=== PATIENT | female | born 1945 | race Caucasian/White ===

== ENCOUNTER 2017-07-21 08:38 | Outpatient (CLI) | payer MEDICARE, OTHER ==
[2017-07-21 09:12] LABS: ALBUMIN/GLOBULIN RATIO 1.6 (1.0-2.2); BILIRUBIN,TOTAL 0.8 mg/dL (0.2-1.0); BUN - BLOOD UREA NITROGEN 14 mg/dL (6-20); CALCIUM 9.8 mg/dL (8.5-10.3); CARBON DIOXIDE - CO2 28 mmol/L (21-32); CHLORIDE 100 mmol/L (101-111); CHOL/HDL RATIO 2.5 (<4.4); CHOLESTEROL 213 mg/dL; CREATININE 0.5 mg/dL (0.4-1.0); GFR - MDRD 121 (>89); GLUCOSE 109 mg/dL (70-100); HDL CHOLESTEROL 86 mg/dL; LDL/HDL RATIO 1.3 (<4.4); POTASSIUM 3.8 mmol/L (3.5-5.0); SODIUM 140 mmol/L (135-145); TOTAL PROTEIN 7.2 g/dL (6.7-8.2); TRIGLYCERIDES 56 mg/dL; VLDL CHOLESTEROL 11 mg/dL
== END 2017-07-21 08:39 | disposition home or self-care (01) ==
LOC: LAB 08:38
PROVIDERS: ATTEND Physician Assistant
DX: I10 Essential (primary) hypertension (principal); E03.9 Hypothyroidism, unspecified; E78.5 Hyperlipidemia, unspecified
CPT/HCPCS: 36415; 80053; 80061; 84443

== ENCOUNTER 2018-05-18 07:55 | Outpatient (CLI) | payer MEDICARE, OTHER ==
[2018-05-18 09:24] LABS: CREATININE,URINE 66.4 mg/dL
[2018-05-18 09:30] LABS: MICROALBUMIN,URINE < 0.2 mg/dL (0-300.0)
[2018-05-18 09:47] LABS: ALBUMIN 4.4 g/dL (3.2-5.5); ALBUMIN/GLOBULIN RATIO 1.5 (1.0-2.2); ALKALINE PHOSPHATASE 66 IU/L (42-121); ALT ALANINE AMINOTRANSFERASE 24 IU/L (10-60); AST ASPARTATE AMINOTRANSFERASE 27 IU/L (10-42); BILIRUBIN,TOTAL 0.9 mg/dL (0.2-1.0); BUN - BLOOD UREA NITROGEN 9 mg/dL (6-20); CALCIUM 9.5 mg/dL (8.5-10.3); CARBON DIOXIDE - CO2 28 mmol/L (21-32); CHLORIDE 99 mmol/L (101-111); CHOL/HDL RATIO 2.2 (<4.4); CHOLESTEROL 209 mg/dL; CREATININE 0.5 mg/dL (0.4-1.0); GFR - MDRD 120 (>89); GLUCOSE 108 mg/dL (70-100); HDL CHOLESTEROL 93 mg/dL; LDL CHOLESTEROL,CALCULATED 105 mg/dL; LDL/HDL RATIO 1.1 (<4.4); SODIUM 137 mmol/L (135-145); TOTAL PROTEIN 7.4 g/dL (6.7-8.2); VLDL CHOLESTEROL 11 mg/dL
== END 2018-05-18 07:56 | disposition home or self-care (01) ==
LOC: LAB 07:55
PROVIDERS: ATTEND Physician Assistant
DX: E78.5 Hyperlipidemia, unspecified (principal); I10 Essential (primary) hypertension; E03.9 Hypothyroidism, unspecified
CPT/HCPCS: 36415; 80053; 80061; 82043; 82570; 83721; 84156; 84443

== ENCOUNTER 2018-05-18 08:14 | Outpatient (CLI) | payer MEDICARE, OTHER ==
--- NOTE | 2018-05-18 16:47 | Mammography Report ---
Reason: BILANNMARIE DIAG w PIERRE/ RT LUMP UOQ Procedure Date: 05/18/2018 Accession Number: [id number] / [id number] Procedure: CORNELL - Diagnostic Bilat 3D Pierre CPT Code: 43433 FULL RESULT: EXAM: Diagnostic Bilat 3D Pierre DATE: 05/18/2018 9:22 AM CLINICAL HISTORY: 73-year-old female presents with palpable nodule. TECHNIQUE: Bilateral 2-D and 3-D imaging of the breasts in CC and MLO projections was obtained. A 2-D right exaggerated CC view was also obtained. A right spot MLO view was also obtained. COMPARISON: 02/16/2015, 09/29/2013. FINDINGS: The breasts demonstrate scattered fibroglandular densities bilaterally. Within the right chest wall projecting within the pectoralis muscle is a hyperdense mass with irregular border measuring at least 6.9 x 3.2 cm seen on the MLO projection only. Focused breast ultrasound with grayscale and limited color Doppler images was also obtained. This demonstrated the mass to be hypoechoic with irregular borders and within the chest wall musculature. IMPRESSION: Suspicious abnormality. The patient has a appointment for ultrasound-guided biopsy at 12:15 on 05/28/2018. RECOMMENDATION: Ultrasound-guided biopsy. BIRADS CATEGORY 5 STANDARD QUALIFYING STATEMENTS: 1. This examination was not reviewed with the aid of Computer-Aided Detection (CAD). 2. A negative or benign imaging report should not delay biopsy if clinically suspicious findings are present. Consider surgical consultation if warrented. More than 5% of cancers are not identified by imaging. 3. Dense breasts may obscure an underlying neoplasm. 4. This examination was reviewed with the aid of 3D imaging (tomography).
== END 2018-05-18 08:15 | disposition home or self-care (01) ==
LOC: DI 08:14
PROVIDERS: ATTEND Physician Assistant
DX: N63.10 Unspecified lump in the right breast, unspecified quadrant (principal); R22.2 Localized swelling, mass and lump, trunk; E78.5 Hyperlipidemia, unspecified; E03.9 Hypothyroidism, unspecified; I10 Essential (primary) hypertension
CPT/HCPCS: 36415; 71046; 76642; 77062; 80053; 80061; 82043; 82570; 84443

== ENCOUNTER 2018-05-18 11:22 | Outpatient (CLI) | payer MEDICARE, OTHER ==
--- NOTE | 2018-05-18 16:18 | XRAY Report ---
Reason: MASS ABOVE R BREAST CHEST WALL Procedure Date: 05/18/2018 Accession Number: [id number] / [id number] Procedure: XR - Chest 2 View X-Ray CPT Code: 13441 FULL RESULT: EXAM: CHEST RADIOGRAPHY EXAM DATE: 05/18/2018 11:34 AM. CLINICAL HISTORY: Mass above right breast chest wall. COMPARISON: US breast unilateral limited 05/18/2018 10:27 AM. TECHNIQUE: 2 views. FINDINGS: Lungs/Pleura: No focal opacities evident. No pleural effusion. No pneumothorax. Normal volumes. Mediastinum: Heart and mediastinal contours are unremarkable. Other: The known mass is not well seen on chest radiograph. IMPRESSION: No acute cardiopulmonary abnormality. RADIA
== END 2018-05-18 11:23 | disposition home or self-care (01) ==
LOC: DI 11:22
PROVIDERS: ATTEND Physician Assistant
DX: R22.2 Localized swelling, mass and lump, trunk (principal); N63.10 Unspecified lump in the right breast, unspecified quadrant
CPT/HCPCS: 71046

== ENCOUNTER 2018-05-28 12:12 | Outpatient (CLI) | payer MEDICARE, OTHER ==
[2018-05-28] MEDS ORDERED: BUFFERED LIDOCAINE 10 ML SYRINGE IU ONE (14:53)
[2018-05-28] MEDS ORDERED: BUPIVACAINE 0.5%-EPI 1:200000 PF 10 ML VIAL SUBQ ONE ×2 (14:54)
--- NOTE | 2018-05-28 16:18 | Ultrasound Report ---
Reason: ABN MAMMO - RT CHEST WALL NODULE Procedure Date: 05/28/2018 Accession Number: [id number] / [id number] Procedure: US - Biopsy Breast Core CPT Code: FULL RESULT: PROCEDURE: Ultrasound-guided needle biopsy right chest wall mass superior to right breast. CLINICAL DATA: Targeted mass superior right chest wall at least 5 x 5 x 2.5 cm. Informed consent was obtained. Using standard aseptic technique, both 1% buffered lidocaine and Sensorcaine were injected into the right chest for local anesthesia. A small kathryn was made in the skin with a #11 blade. Using ultrasound guidance a 14-gauge achieve needle was used to obtain 5 core specimens which were placed in formalin. A specialized biopsy marker clip was placed into the biopsy site, also under ultrasound guidance. The patient was taken to separate mammography machine and a two-view digital mammography was performed to verify the clip placement and any complications. The mammography showed appropriate clip placement.. A postprocedure PA chest x-ray was also performed and no pneumothorax is seen. The wound was dressed. The patient was observed for approximately 15 minutes, then was discharged from diagnostic imaging Department in good condition following instructions on wound care and obtaining biopsy results. The patient is scheduled to receive the biopsy results from the referring physician. The tissue was sent for histologic analysis. IMPRESSION: Ultrasound-guided biopsy of the right chest. AN ADDENDUM WILL REMAIN TO THIS REPORT WHEN PATHOLOGY IS REVIEWED TO ESTABLISH CONCORDANCE.
--- NOTE | 2018-05-28 16:20 | XRAY Report ---
Reason: F/U TO BREAST BIOPSY PER RADIOLOGISTS REQUEST Procedure Date: 05/28/2018 Accession Number: [id number] / [id number] Procedure: XR - Chest 1 View X-Ray CPT Code: 70855 FULL RESULT: EXAM: Chest 1 View X-Ray DATE: 05/28/2018 2:46 PM CLINICAL HISTORY: F/U TO RIGHT CHEST WALL BIOPSY PER RADIOLOGISTS REQUEST COMPARISON: 05/18/2018 TECHNIQUE: Single view of the chest. FINDINGS: Lungs/Pleura: No focal opacities evident. No pneumothorax or pleural effusion. Mediastinum: Within exam limitations, cardiomediastinal contour is normal. Other: None. IMPRESSION: Negative single view chest. No unexpected findings status post right chest wall mass biopsy. RADIA
== END 2018-05-28 12:13 | disposition home or self-care (01) ==
LOC: DI 12:12
PROVIDERS: ATTEND Physician Assistant
DX: C50.911 Malignant neoplasm of unspecified site of right female breast (principal)
CPT/HCPCS: 19083

== ENCOUNTER 2019-03-15 21:25 | Inpatient (IN) | payer MEDICARE, OTHER ==
[2019-03-15 22:06] LABS: BASOPHILS % (AUTO) 0.2 %; EOSINOPHILS # (AUTO) 0.1 10^3/uL (0.0-0.7); EOSINOPHILS % (AUTO) 2.5 %; HGB - HEMOGLOBIN 14.5 g/dL (12.0-16.0); LYMPHOCYTES # (AUTO) 0.4 10^3/uL (1.5-3.5); LYMPHOCYTES % (AUTO) 7.6 %; MEAN CORPUSCULAR HEMOGLOBIN 32.6 pg (27.0-31.0); MEAN CORPUSCULAR HGB CONC 33.5 g/dL (32.0-36.0); MEAN CORPUSCULAR VOLUME 97.3 fL (81.0-99.0); MEAN PLATELET VOLUME 9.3 fL (7.9-10.8); MONOCYTES # (AUTO) 0.3 10^3/uL (0.0-1.0); MONOCYTES % (AUTO) 4.8 %; NEUTROPHILS # (AUTO) 4.8 10^3/uL (1.5-6.6); NEUTROPHILS % (AUTO) 84.5 %; PLT - PLATELET COUNT 200 10^3/uL (130-450); RED BLOOD COUNT 4.45 10^6/uL (4.20-5.40); RED CELL DISTRIBUTION WIDTH 12.3 % (12.0-15.0); WHITE BLOOD COUNT 5.7 x10^3/uL (4.8-10.8)
[2019-03-15 22:19] LABS: ALBUMIN 3.7 g/dL (3.2-5.5); ALBUMIN/GLOBULIN RATIO 1.2 (1.0-2.2); BILIRUBIN,TOTAL 1.3 mg/dL (0.2-1.0); CALCIUM 9.9 mg/dL (8.5-10.3); CREATININE 0.5 mg/dL (0.4-1.0); TOTAL PROTEIN 6.8 g/dL (6.7-8.2)
--- NOTE | 2019-03-15 23:12 | ED Physician Documentation ---
PD HPI NVD - Stated complaint Stated Complaint: ABD PX/VOMITING - Chief complaint Chief Complaint: Abd Pain - History obtained from History obtained from: Patient - History of Present Illness Timing - onset: Today (this afternoon, shortly after small lunch, onset of feeling bloated, gassy, and cramping diffuse abd pain. No stool today. Had some flatulance initially but not the past several hours. Has vomiting and nausea.) Timing - duration: Hours Timing - details: Abrupt onset, Still present Associated symptoms: Chest pain (She has had some mild persistent right chest pain status post thoracostomy 4 days ago at for wedge resection biopsy of a right lung nodule. She has had improving pain and has not needed pain medicine for couple of days. She has bruising at the incision sites but no signs of infection.). No: Fever, Hematemesis, Dizzy, Near syncope / syncope Contributing factors: No: Bad food, Travel, Recent antibiotics Improved by: No: Vomiting Worsened by: Eating Similar symptoms before: Has not had sx before Recently seen: Surgery (4 days ago at [facility], with wedge resection biopsy via thoracostomy.) Review of Systems Constitutional: denies: Fever, Chills, Myalgias Nose: denies: Rhinorrhea / runny nose, Congestion Throat: denies: Sore throat Cardiac: reports: Chest pain / pressure. denies: Palpitations Respiratory: denies: Cough GI: reports: Abdominal Pain, Nausea, Vomiting. denies: Constipation, Diarrhea, Bloody / black stool : denies: Dysuria, Frequency Neurologic: reports: Generalized weakness. 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 HEENT: Tonsil/Adenoidectomy - Present Medications Home Medications: Ambulatory Orders Medication Instructions Recorded Confirmed Levothyroxine [Synthroid] 175 mcg PO DAILY 08/23/15 08/23/15 Simvastatin 20 mg PO DAILY 08/23/15 08/23/15 - Allergies Allergies/Adverse Reactions: Allergies Allergy/AdvReac Type Severity Reaction Status Date / Time No Known Drug Allergies Allergy Verified 03/15/19 21:41 - Social History Does the pt smoke?: No Smoking Status: Never smoker Does the pt drink ETOH?: Yes Does the pt have substance abuse?: No - Immunizations Immunizations are current?: Yes - POLST Patient has POLST: No PD ED PE NORMAL - Vitals Vital signs reviewed: Yes - General General: Alert and oriented X 3, Well developed/nourished, Other (appears in some pain) - HEENT HEENT: Pharynx benign - Neck Neck: Supple, no meningeal sign, No adenopathy - Cardiac Cardiac: RRR, No murmur - Respiratory Respiratory: Other (port palpable left chest wall. ). No: Clear bilaterally (mostly symmetric with slightly diminished breath sounds right side. No labored breathing. There is closed wounds right posterolateral chest with bruising and some palpable subcutaenous air, but no signs of infection. ) - Abdomen Abdomen: No: Normal bowel sounds (increased bowel sounds, hyperactive. There is diffuse tenderness to abd, but more to the lower abd. Mild distension only. Mild percussion tenderness. There is a palpable periumbilical hernia which is soft and reducible. No inguinal hernia felt. ) - Female Female : Deferred - Rectal Rectal: Deferred - Back Back: No CVA TTP - Derm Derm: Normal color, Warm and dry - Extremities Extremities: No tenderness to palpate, Normal ROM s pain, No edema, No calf tenderness / cord - Neuro Neuro: Alert and oriented X 3, No motor deficit, Normal speech Results - Vitals Vitals: Vital Signs - 24 hr 03/15/19 03/15/19 03/16/19 21:37 22:56 00:24 Temperature 36.6 C Heart Rate 86 80 80 Respiratory 16 18 18 Rate Blood Pressure 146/76 H 147/86 H 148/69 H O2 Saturation 96 90 L 96 03/16/19 02:07 Temperature Heart Rate 82 Respiratory 16 Rate Blood Pressure 128/60 O2 Saturation 95 Oxygen O2 Source Nasal cannula Oxygen Flow Rate 2 - Labs Labs: Laboratory Tests 03/15/19 03/15/19 03/16/19 21:59 21:59 00:11 WBC 5.7 RBC 4.45 Hgb 14.5 Hct 43.3 MCV 97.3 MCH 32.6 H MCHC 33.5 RDW 12.3 Plt Count 200 MPV 9.3 Neut # (Auto) 4.8 Lymph # (Auto) 0.4 L [place] # (Auto) 0.3 Eos # (Auto) 0.1 Baso # (Auto) 0.0 Absolute Nucleated RBC 0.00 Nucleated RBC % 0.0 Sodium 139 Potassium 3.7 Chloride 98 L Carbon Dioxide 26 Anion Gap 15.0 H BUN 10 Creatinine 0.5 Estimated GFR (MDRD) 120 Glucose 137 H Calcium 9.9 Total Bilirubin 1.3 H AST 27 ALT 26 Alkaline Phosphatase 55 Total Protein 6.8 Albumin 3.7 Globulin 3.1 Albumin/Globulin Ratio 1.2 Lipase 21 L Urine Color YELLOW Urine Clarity CLEAR Urine pH 7.0 Ur Specific [place] 1.015 Urine Protein NEGATIVE Urine Glucose (UA) NEGATIVE Urine Ketones >=80 H Urine Occult Blood NEGATIVE Urine Nitrite NEGATIVE Urine Bilirubin NEGATIVE Urine Urobilinogen 0.2 (NORMAL) Ur Leukocyte Esterase NEGATIVE Ur Microscopic Review NOT INDICATED Urine Culture Comments NOT INDICATED - Rads (name of study) abd/pelvis/chest CT Radiology: Prelim report reviewed, Discussed with rads (Patient has post procedure pneumothorax and subcutaneous emphysema with some inflammatory changes. No signs of abscess or loculations. There is in the abdomen dilated loops of bowel consistent with a bowel obstruction with apparent source being some adhesions and inflammation underneath the mesh from a prior surgery. There is also visible a periumbilical hernia that does not look incarcerated.), See rad report PD MEDICAL DECISION MAKING - ED course Complexity details: reviewed results, re-evaluated patient (Patient's initial preference was to stick with the [facility] system. I did talk with the transfer center who said they were boarding patients at all their facilities and were deferring accepting any transfers unless complicated problems. They suggested talking with our local surgeon for this.), considered differential, d/w patient, d/w sap plant maintenance consultant (Dr. Chito Fritz - discussed her findings and recent procedure - he refers to Medicine and will consult. ) Departure - Departure Disposition: 66 [facility] DC/Xfer Clinical Impression: Small bowel obstruction due to adhesions, Pneumothorax of right lung after biopsy Condition: Stable Record reviewed to determine appropriate education?: Yes
[2019-03-15] MEDS ORDERED: HYDROmorphone 1 MG/ML CARPUJECT IVP STA (23:22)
[2019-03-15] MEDS ORDERED: ONDANSETRON 4 MG/2 ML VIAL IVP STA (23:22)
[2019-03-15] MEDS ORDERED: SODIUM CHLORIDE 0.9% 1,000 ML IV ONE (23:22)
[2019-03-16] MEDS ORDERED: IOVERSOL 320 100 ML VIAL IVP ONE ×2 (00:03→00:44)
[2019-03-16 00:33] LABS: BILIRUBIN,URINE NEGATIVE (NEGATIVE); GLUCOSE, URINE (UA) NEGATIVE (NEGATIVE); KETONES,URINE (UA) >=80 mg/dL (NEGATIVE); LEUKOCYTE ESTERASE, URINE NEGATIVE (NEGATIVE); NITRITE,URINE NEGATIVE (NEGATIVE); OCCULT BLOOD,URINE NEGATIVE (NEGATIVE); PROTEIN,URINE NEGATIVE (NEGATIVE); UROBILINOGEN,URINE 0.2 (NORMAL) E.U./dL (NORMAL)
[2019-03-16 00:35] LABS: CLARITY,URINE CLEAR (CLEAR)
[2019-03-16] MEDS ORDERED: HYDROmorphone 1 MG/ML CARPUJECT IVP STA ×2 (00:47→02:17)
--- NOTE | 2019-03-16 01:07 | CT Report ---
Reason: post wedge resection Thursday; abd pain and vomiting Procedure Date: 03/16/2019 Accession Number: [id number] / [id number] Procedure: CT - CHEST W CPT Code: FULL RESULT: EXAM: CT CHEST EXAM DATE: 03/16/2019 12:41 AM. CLINICAL HISTORY: Post wedge resection Thursday; abd pain and vomiting. COMPARISONS: ABDOMEN/PELVIS W/ 03/16/2019 12:32 AM. TECHNIQUE: Routine helical CT imaging was performed through the chest. IV contrast: 100 mL Optiray 320. Reconstructions: Coronal and sagittal. In accordance with CT protocol optimization, one or more of the following dose reduction techniques were utilized for this exam: automated exposure control, adjustment of mA and/or KV based on patient size, or use of iterative reconstructive technique. FINDINGS: Lungs/Pleura: Postoperative changes in the right middle lobe. Right greater than left basilar atelectasis. Small right pneumothorax. Extensive subcutaneous emphysema in the right chest wall. Mediastinum: Atherosclerotic calcifications. No adenopathy or cardiomegaly. Bones: Degenerative changes. Visualized Abdomen: Please see separate CT. Other: None. IMPRESSION: Postoperative changes in the right middle lobe, with small right pneumothorax and right chest wall subcutaneous emphysema. RADIA The critical result notification system was initiated by Dr. David Gregory at 12:58 AM on 03/16/2019. The above critical result findings were discussed with Zac Sorensen by Dr. David Gregory at 01:06 AM on 03/16/2019.
--- NOTE | 2019-03-16 01:07 | CT Report ---
Reason: abd pain and vomiting Procedure Date: 03/16/2019 Accession Number: [id number] / [id number] Procedure: CT - Abdomen/Pelvis W CPT Code: FULL RESULT: EXAM: CT ABDOMEN AND PELVIS EXAM DATE: 03/16/2019 12:41 AM. CLINICAL HISTORY: Abd pain and vomiting. COMPARISONS: None. TECHNIQUE: Routine helical CT imaging was performed through the abdomen and pelvis. IV contrast: 100 mL Optiray 320. Enteric contrast: No. Reconstructions: Coronal and sagittal. In accordance with CT protocol optimization, one or more of the following dose reduction techniques were utilized for this exam: automated exposure control, adjustment of mA and/or KV based on patient size, or use of iterative reconstructive technique. FINDINGS: Lung Bases: Postoperative changes in the right middle lobe, with small right pneumothorax and associated subcutaneous emphysema. Liver: Normal. No masses. Gallbladder/Bile Ducts: Unremarkable. Spleen: Normal. Pancreas: Normal. Adrenal Glands: Normal. Kidneys: Normal. No masses or hydronephrosis. Peritoneal Cavity/Bowel: Small bowel dilatation in the pelvis, with mesenteric edema and ascites. There is been a previous right inguinal hernia repair, and the dilated small bowel loops are closely associated with the hernia mesh. Superior to the hernia mesh, there are 2 anterior abdominal wall hernias, one below and to the left of the umbilicus containing fat, and 1 just to the right of the umbilicus containing a nondilated loop of small bowel. Pelvic Organs: Small amount of ascites in the pelvis. Postoperative changes of hysterectomy. No pelvic adenopathy. Vasculature: Atherosclerotic disease. No aneurysm. Bones: Degenerative changes. Other: None. IMPRESSION: Dilated small bowel loops in the pelvis, with mesenteric edema and ascites, closely associated with the mesh from a previous right inguinal hernia repair. Additional umbilical hernias, 1 of which contains a nondilated loop of small bowel. Findings called to Dr. Sorensen in the emergency department on 03/16/2019 at 1 AM. KODI
[2019-03-16] MEDS ORDERED: SODIUM CHLORIDE 0.9% 1,000 ML IV ONE (02:17)
--- NOTE | 2019-03-16 03:24 | HISTORY & PHYSICAL EXAMINATION ---
Chief Complaint - Chief Complaint Chief Complaint: Abdominal pain History of Present Illness - Admitted From Admitted From:: Home - History Obtained From Records Reviewed: Yes History obtained from: Patient, - History of Present Illness HPI Comment/Other: This is a 73 year old female with a past medical history significant for breast cancer, and hypothyroidism who presents from complaining of abdominal pain that began yesterday afternoon. She reports eating pie for lunch and then developing abdominal bloating and painful gas. She then had two episodes nonbloody emesis. The pain was generalized but quite severe. She was unable to pass gas but reports having one nonbloody bowel movement after the onset of pain. She reports a prior history of multiple hernia repairs but denies a history of bowel obstruction. She was diagnosed with breast cancer in the fall of last year. Her Oncologist is at [facility] but the cancer is reportedly triple negative. She was treated with chemotherapy and was doing well until a CT this summer was concerning for possible metastasis. She underwent right axillary dissection at in February and per the patient and , the lymph nodes were negative for malignancy although 5 nodes showed prior history of malignancy that responded to treatment. She was found to have lung nodule and she underwent right wedge resection last Thursday at as well. This was complicated by a small pneumothorax and a chest tube was placed until this past Thursday when it was removed and she was discharged home. She currently denies chest pain, dyspnea, fevers, chills. In the ER, she had two further episodes of clear emesis. She underwent a CT of the abdomen/pelvis which showed dilated small bowel loops with mesenteric edema and ascites along with a couple of hernias. A CT of the chest was also performed which showed postoperative changes a small right pneumothorax. She will be admitted under observation for further management. 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 Social History Notes: She currently lives on [address] with her , [place]. They moved here 10 years ago from [place] but still spend quite a bit of their time in [place]. She has two adult children and three grandchildren. She has no significant smoking history. She drinks at least one glass of wine on a daily basis. Denies drug use. - Substance History Use: Uses substance without health or social issues: Alcohol - POLST Patient has POLST: No Meds/Allgy - Home Medications Home Medications: Ambulatory Orders Medication Instructions Recorded Confirmed Levothyroxine [Synthroid] 175 mcg PO DAILY 08/23/15 08/23/15 Simvastatin 20 mg PO DAILY 08/23/15 08/23/15 - Allergies Allergies/Adverse Reactions: Allergies Allergy/AdvReac Type Severity Reaction Status Date / Time No Known Drug Allergies Allergy Verified 03/15/19 21:41 Review of Systems - Constitutional Constitutional: reports: Poor appetite. denies: Fatigue, Fever, Chills - Cardiovascular Cariovascular: denies: Palpitations, Chest pain, Lightheadedness, Exertional dyspnea - Respiratory Respiratory: denies: Cough, SOB at rest - Gastrointestinal Gastrointestinal: reports: Abdominal pain, Change in bowel habits, Nausea, Vomiting, Bloating, Poor appetite. denies: Diarrhea, Black stools, Bloody stools, Bile emesis, Abhishek blood emesis - Genitourinary Genitourinary: denies: Dysuria, Frequency, Urgency, Hematuria - Musculoskeletal Musculoskeletal: denies: Muscle weakness - Integumentary Integumentary: denies: Rash - Neurological Neurological: denies: General weakness, Focal weakness - All Other Systems All Other Systems: reports: Reviewed and negative Prior Level of Functionality: Independent with ADL's. Exam - Vital Signs Reviewed Vital Signs: Yes Vital Signs: Vital Signs x48h Temp Pulse Resp BP Pulse Ox 03/16/19 02:07 82 16 128/60 95 03/16/19 00:24 80 18 148/69 H 96 03/15/19 22:56 80 18 147/86 H 90 L 03/15/19 21:37 36.6 C 86 16 146/76 H 96 - Physical Exam General Appearance: positive: No acute distress, Alert Eyes Bilateral: positive: Normal inspection, Conjunctivae nml ENT: positive: ENT inspection nml Neck: positive: Nml inspection Respiratory: positive: Chest non-tender, No respiratory distress, Other (Left sided chest port noted.). negative: Wheezes, Rales, Rhonchi Cardiovascular: positive: Regular rate & rhythm, No murmur. negative: Tachycardia, Bradycardia, Systolic murmur Abdomen: positive: Nml bowel sounds, No distention, Tenderness (Mild tenderness in the epigastric area). negative: Non-tender, Guarding, Rebound, Mass Skin: positive: Color nml, No rash, Warm, Dry Extremities: positive: No pedal edema. negative: Pedal edema Neurologic/Psychiatric: positive: Oriented x3, Motor nml. negative: Disoriented to person, Disoriented to place, Disoriented to time, Weakness, Slurred/abnml speech, Depressed mood/affect Conclusion/Plan - Problem List (1) Partial small bowel obstruction Conclusion/Plan: Presented with nausea, vomiting and abdominal pain. CT of abdomen/pelvis shows dilated loops of small bowel but no clear transition point. Has history of multiple hernia repairs which puts her at risk for adhesions. - IV hydration - Dilaudid and Zofran PRN - NPO - Will hold off on NG tube placement unless her emesis persists - General Surgery consult (2) Pneumothorax of right lung after biopsy Conclusion/Plan: She has a small right pneumothorax as a consequence of her right lung wedge resection this past week at . No respiratory symptoms. - Obtain x-ray in AM - Outpatient follow up (3) Breast cancer Conclusion/Plan: She has history of triple negative breast cancer for which she was treated with chemotherapy earlier this year. Follows with Oncology at [facility]. Recent concern for metastatic disease and underwent right axillary dissection for lymph node evaluation as well as wedge resection of right lung for a nodule. - Outpatient follow up (4) Hypothyroidism Conclusion/Plan: On Synthroid. Stable. - Resume once taking PO - Lab Results Lab results reviewed: Yes Fish Bones: 03/15/19 21:59 03/15/19 21:59 - Diagnostic Imaging Results Diagnostic Imaging Results: positive: Final report reviewed Core Measures - Anticipated LOS I expect patient to be DC'd or transferred within 96 hours.: Yes - Issues Hospital Issues and Management Plan: Partial SBO. IV hydration and pain control. - DVT/VTE - Prophylaxis VTE/DVT Device ordered at admit?: Yes VTE/DVT Prophylaxis med ordered at admit?: Yes
[2019-03-16] MEDS: SODIUM CHLORIDE FLUSH 0.9% 10 ML SYRINGE IVP PRN ×3 (04:14→18:33)
[2019-03-16] MEDS: HYDROmorphone 0.5 MG/0.5 ML SYRINGE IVP PRN ×6 (04:15→22:52)
[2019-03-16] MEDS: LACTATED RINGERS 1,000 ML IV SCH ×2 (04:15→15:08)
--- NOTE | 2019-03-16 04:37 | ADVANCE CARE PLANNING NOTE ---
Advance Care Planning - Planning Encounter Date: 03/16/19 Time: 02:30 Purpose: Discuss goals of care. Parties in Attendance: The patient and her , Prince. Decisional Capacity of the Patient: She is competent to make her own decisions. - Encounter Subjective/Patient's Story: Luis Alberto and her Prince have moved around recently. They were previously living in [place] before they moved to [place]. They spent some time there before moving to [facility] about 10 years ago. They still own a home in [place] and spend quite some time there. Luis Alberto actually had her multiple hernia repairs completed in [place]. They have two adult sons and three grandchildren. 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 She is still quite physically active and feels like she has a lot more to accomplish in this life. Prince tells me that he has her advanced directive at home which states she is a DNR. Luis Alberto became a little tearful when we discussed code status. Objective/Medical Story: Luis Alberto had a very limited medical history that included hypertension, hypothyroidism, and hyperlipidemia up until the fall when she was diagnosed with breast cancer. She tells me that the mass was too large to perform surgery but biopsy revealed it was triple negative breast cancer. Her Oncologist is at [facility] and she received chemotherapy for a few months. She tolerated it well but she does now have some peripheral neuropathy as a side effect. She was doing quite well until a CT scan this summer was concerning for possible metastasis. She underwent right axillary dissection and to her knowledge, there were no signs of malignancy. A few lymph nodes did show cancer that was responding to treatment and that was considered a good sign. She then underwent a right lung wedge resection for a lung nodule that could be metastatic. She was not a candidate for biopsy due to the location of the nodule. This occurred just this past weekend. She was hospitalized as she had a small pneumothorax after the procedure. Two days after discharge she presents to our facility now with concerns for partial small bowel obstruction. Goals of Care: She would like to get healthy and stop requiring multiple surgeries as it has been frustrating for her over the last month to have two surgeries. She is concerned about potentially requiring a third surgery if her obstruction does not resolve. Plan: She will like to be full code at this time. Her will bring in her advanced directives when he comes back to the hospital later today. They both understand that the advanced directives can be changed and revoked at any time and that our goal as medical providers is to abide by the patient's wishes. Code Status: Attempt Resuscitation Time spent on advance care plannin minutes
[2019-03-16 05:59] LABS: BASOPHILS % (AUTO) 0.4 %; EOSINOPHILS # (AUTO) 0.1 10^3/uL (0.0-0.7); EOSINOPHILS % (AUTO) 1.8 %; HGB - HEMOGLOBIN 13.6 g/dL (12.0-16.0); LYMPHOCYTES # (AUTO) 0.5 10^3/uL (1.5-3.5); LYMPHOCYTES % (AUTO) 9.3 %; MEAN CORPUSCULAR HEMOGLOBIN 32.3 pg (27.0-31.0); MEAN CORPUSCULAR HGB CONC 33.3 g/dL (32.0-36.0); MEAN CORPUSCULAR VOLUME 96.9 fL (81.0-99.0); MEAN PLATELET VOLUME 9.7 fL (7.9-10.8); MONOCYTES # (AUTO) 0.3 10^3/uL (0.0-1.0); MONOCYTES % (AUTO) 5.7 %; NEUTROPHILS # (AUTO) 4.2 10^3/uL (1.5-6.6); NEUTROPHILS % (AUTO) 82.4 %; PLT - PLATELET COUNT 195 10^3/uL (130-450); RED BLOOD COUNT 4.21 10^6/uL (4.20-5.40); RED CELL DISTRIBUTION WIDTH 12.5 % (12.0-15.0); WHITE BLOOD COUNT 5.1 x10^3/uL (4.8-10.8)
[2019-03-16 06:08] LABS: CALCIUM 8.7 mg/dL (8.5-10.3); CREATININE 0.4 mg/dL (0.4-1.0); MAGNESIUM 1.7 mg/dL (1.7-2.8)
[2019-03-16] MEDS: PANTOPRAZOLE 40 MG VIAL IVP SCH (06:44)
[2019-03-16] MEDS: POTASSIUM CHLOR 10 MEQ/100 ML 10 MEQ/100 ML BAG IV SCH ×4 (07:51→14:21)
[2019-03-16] MEDS: ENOXAPARIN 40 MG/0.4 ML SYRINGE SUBQ SCH (08:52)
[2019-03-16] MEDS: SODIUM CHLORIDE FLUSH 0.9% 10 ML SYRINGE IVP SCH ×2 (08:52→17:42)
--- NOTE | 2019-03-16 09:41 | CONSULTATION NOTE ---
Referring Provider Name of Referring Provider:: Dr. Munson Consult Date: 03/16/19 Chief Complaint - Chief Complaint Chief Complaint: abd pain, N,V History of Present Illness - Admitted From Admitted From:: ER - History Obtained From Records Reviewed: yes History obtained from: pt, records Exam Limitations: none - History of Present Illness HPI Comment/Other: 73 yo female with 24 hour hx of sudden onset of crampy periumbilical abd pain, N/V, unrelieved with antacids and Pepto-bismol, for which she presented to the ER last night and was admitted. She reports nl bm yesterday afternoon but no passage of flatus or stool since. Since admission her vomiting has resolved and she has mild intermittent nausea; her pain is persistent but diminished. She reports a milder, self limited episode several weeks ago that she attributed to stress. No unusual oral intake, no hx melena, hematochezia or hematemesis. No fever/chills. She is s/p multiple prior abdominal surgeries, including expl lap with appendectomy, TH/BSO for benign diseae, surgical treatment of rectocele, laparoscopic repair of RIH, and VIH repairs x 2. Evaluation in the ER included abd/pelvic CT which showed recurrent VIH x 2, one with non dilated loop of small bowel within (periumbilical region), and one with fat only (lower midline) and none causing the SBO, where a transition point and possible adhesive band is seen in mid small bowel without evidence of strangulation obstruction or closed loop process or malignancy. She was admitted for observation and surgical consultation. No prior hospitalizations for SBO. She was hospitalized last week at for a VATS right pulmonary wedge resection for a pulmonary nodule. She reports no dyspnea or cough at present. History - Past Medical History Cardiovascular: reports: Hypertension, High cholesterol Respiratory: reports: Other (last week VATS wedge resection of right lung for pulmonary nodule; path pending.) Neuro: reports: None Endocrine/Autoimmune: reports: HyPOthyroidism GI: reports: Other (multiple hernia repairs) DISPENSARY TECHNICIAN: reports: Breast cancer (recent lumpectomy, chemotherapy and right axillary ln dissection; followed in [place] ?stage 2 disease, pending path on lung nodule recently resected.) : reports: None HEENT: reports: None Psych: reports: Anxiety Musculoskeletal: reports: Osteoarthritis, Osteoporosis, Chronic back pain Derm: reports: None MRSA Hx?: No - Past Surgical History General: reports: Appendectomy, Other (hernia repairs x 3; details not presently available) Ortho: reports: Other /DISPENSARY TECHNICIAN: reports: Hysterectomy, Oophrectomy, Other (rectocele repair) HEENT: reports: Tonsil/Adenoidectomy Other past surgical history: recent VATS wedge pulmonary resection on right for pulmonary nodule; path pending - Family & Social History Family History: Mother: CAD, Cancer (Liver), Father: CAD Living arrangement: At home Living Situation: With spouse/s.o. Social History Notes: She currently lives on [facility] with her , Prince. They moved here 10 years ago from [place] but still spend quite a bit of their time in [place]. She has two adult children and three grandchildren. She has no significant smoking history. She drinks at least one glass of wine on a daily basis. Denies drug use. - Substance History Use: Uses substance without health or social issues: Alcohol (2 drinks/night) - POLST Patient has POLST: No Meds/Allgy - Home Medications Home Medications: Ambulatory Orders Medication Instructions Recorded Confirmed Levothyroxine [Synthroid] 175 mcg PO DAILY 08/23/15 08/23/15 Simvastatin 20 mg PO DAILY 08/23/15 08/23/15 - Allergies Allergies/Adverse Reactions: Allergies Allergy/AdvReac Type Severity Reaction Status Date / Time No Known Drug Allergies Allergy Verified 03/15/19 21:41 Review of Systems - Constitutional Constitutional: reports: Poor appetite. denies: Fatigue, Fever, Chills, Diaphoresis, Night sweats - Gastrointestinal Gastrointestinal: reports: Abdominal pain, Abdominal distention, Nausea, Vomiting, Poor appetite. denies: Constipation, Diarrhea, Rectal bleeding, Black stools, Bloody stools, Abhishek blood emesis, Coffee grounds emesis - Genitourinary Genitourinary: denies: Dysuria - Hematologic/Lymphatic Hematologic/Lymphatic: denies: Bruising, Bleeding tendencies - All Other Systems All Other Systems: reports: Reviewed and negative (or covered in HPI/PMH) Exam - Vital Signs Reviewed Vital Signs: Yes Vital Signs: Vital Signs x48h Temp Pulse Pulse Resp BP BP Pulse Ox 03/16/19 07:46 36.7 C 96 18 125/65 95 03/16/19 03:00 36.8 C 83 14 147/57 H 97 03/16/19 02:07 82 16 128/60 95 - Physical Exam General Appearance: positive: Alert, Mild distress Eyes Bilateral: positive: Normal inspection, Conjunctivae nml, No scleral icte tawanna ENT: positive: Dry mucous membranes Neck: positive: Nml inspection, No JVD, Trachea midline. negative: Lymphadenopathy (R), Lymphadenopathy (L) Respiratory: positive: Chest non-tender, No respiratory distress. negative: Breath sounds nml (slightly diminished breath sounds right anterior chest) Cardiovascular: positive: Regular rate & rhythm, No murmur, No gallop Abdomen: positive: Non-tender, No organomegaly, Mass (left LLQ para median c/w incarcerated VIH), Abnml bowel sounds (high pitched, hyperactive). negative: Guarding, Rebound, Hepatomegaly, Splenomegaly Skin: positive: Color nml, No rash, Warm, Dry Extremities: positive: No pedal edema. negative: Calf tenderness Neurologic/Psychiatric: positive: Oriented x3 Conclusion/Plan - Diagnosis Diagnosis: SBO most likely secondary to adhesions. No evidence of acute abdmone, complete SBO, strangulation or closed loop; no evidence of intraabdominal malignancy. - Plan Plan: Agree with present management; would begin a gastrograffin challenge test today; would insent an NG tube for recurrent N/V; will follow; thanks. - Lab Results Lab results reviewed: Yes Fish Bones: 03/16/19 05:20 03/16/19 05:20 - Diagnostic Imaging Results Diagnostic Imaging Results: positive: Final report reviewed, Discussed with radiologist, Read independently Diagnostic Imaging Results Comments: See HPI Chest CT showed small apical right pneumothorax and subcutaneous emphsema c/w recent lung surgery.
--- NOTE | 2019-03-16 09:44 | XRAY Report ---
Reason: Small pneumothorax after R wedge resction. Procedure Date: 03/16/2019 Accession Number: [id number] / [id number] Procedure: XR - Chest 1 View X-Ray CPT Code: 29280 FULL RESULT: EXAM: CHEST RADIOGRAPHY EXAM DATE: 03/16/2019 06:22 AM. CLINICAL HISTORY: Small pneumothorax after R wedge resection. COMPARISON: CHEST 1 VIEW 05/28/2018 2:40 PM CHEST W/ 03/16/2019 12:32 AM. TECHNIQUE: 1 view. FINDINGS: Lungs/Pleura: Right apical pneumothorax 1.8 cm. Possible small pneumothorax at the right lung base. Right basilar atelectasis. Mediastinum: Heart size normal. Ectatic aorta. Pneumomediastinum. Other: Left side Port-A-Cath tip at the junction of the brachiocephalic vein with SVC. Subcutaneous emphysema right neck, right chest. Right axillary clips. IMPRESSION: 1. Right apical pneumothorax 1.8 cm. There may be a small component along the right lung base. RADIA
[2019-03-16] MEDS ORDERED: DIATR MEGLU/DIATRIZOATE SODIUM 120 ML BOTTLE PO ONE ×2 (10:00)
--- NOTE | 2019-03-16 13:37 | XRAY Report ---
Reason: 15 MIN FILM/ SBO Procedure Date: 03/16/2019 Accession Number: [id number] / [id number] Procedure: XR - No-Charge 1V Abdomen CPT Code: 87488 FULL RESULT: EXAM: ABDOMEN RADIOGRAPHY EXAM DATE: 03/16/2019 10:50 AM. CLINICAL HISTORY: 15 MIN FILM/ SBO. COMPARISON: CHEST 1 VIEW 03/16/2019 6:08 AM ABDOMEN/PELVIS W/ 03/16/2019 12:32 AM. TECHNIQUE: Supine AP view. FINDINGS: Bowel Gas Pattern: Small amount of contrast in the gastric fundus. No other enteric contrast is identified. There is gas in stomach, small bowel, and colon without abnormal distention. There is a small amount of formed stool in the right hemicolon. Other: There is right lateral lower chest wall emphysema, as seen on the prior CT. There is excreted contrast in the urinary bladder. IMPRESSION: Small amount of enteric contrast in the gastric fundus. RADIA
[2019-03-16] MEDS: ONDANSETRON 4 MG/2 ML VIAL IVP PRN ×2 (14:23→20:43)
--- NOTE | 2019-03-16 15:31 | XRAY Report ---
Reason: 4 HR FILM/ SBO Procedure Date: 03/16/2019 Accession Number: [id number] / [id number] Procedure: XR - No-Charge 1V Abdomen CPT Code: 70670 FULL RESULT: EXAM: ABDOMEN RADIOGRAPHY. EXAM DATE: 03/16/2019 02:59 PM. CLINICAL HISTORY: 4 hour film/small bowel obstruction. COMPARISON: NO CHARGE 1V ABDOMEN 03/16/2019 10:50 AM. TECHNIQUE: 2 views. FINDINGS: Lung Bases: Unremarkable. Bowel Gas Pattern: Within normal limits. No dilated loops or abnormal fluid levels. Free Air: None. Other: A predominance of the contrast remains in the stomach. Small amount of contrast is seen in the left mid abdomen. No definite large bowel contrast is identified. IMPRESSION: Progression of contrast as described. RADIA
--- NOTE | 2019-03-16 18:27 | PROVIDER PROGRESS NOTE ---
Subjective - Prog Note Date Prog Note Date: 03/16/19 Prog Note Time: 18:27 - Subjective Pt reports feeling: No change Subjective: this morning her K rider hurt to the point of tears. Still no flatus. no emesis. Abd pain is still present and it hurts to move.She can't focus to read or watch TV bc of it. Wants to lie still in bed. Current Medications - Current Medications Current Medications: Active Medications Enoxaparin Sodium (Lovenox) 40 mg SUBQ DAILY [facility] Last Admin: 03/16/19 08:52 Dose: 40 mg Hydromorphone HCl (Dilaudid Inj Syringe) 0.5 mg IVP Q2H PRN PRN Reason: Pain 8 to 10 Last Admin: 03/16/19 14:41 Dose: 0.5 mg Lactated Ringer's (Lr) 1,000 mls @ 100 mls/hr IV .Q10H [facility] Last Admin: 03/16/19 15:08 Dose: 75 mls/hr Ondansetron HCl (Zofran Inj) 4 mg IVP Q6HR PRN PRN Reason: Nausea / Vomiting Last Admin: 03/16/19 14:23 Dose: 4 mg Pantoprazole Sodium (Protonix) 40 mg IVP QDAC [facility] Last Admin: 03/16/19 06:44 Dose: 40 mg Sodium Chloride (Normal Saline Flush 0.9%) 10 ml IVP PRN PRN PRN Reason: NEEDED PER PROVIDER ORDERS Last Admin: 03/16/19 08:52 Dose: 10 ml Sodium Chloride (Normal Saline Flush 0.9%) 10 ml IVP 0100,0900,1700 [facility] Last Admin: 03/16/19 17:42 Dose: Not Given Simvastatin 20 mg PO DAILY 08/23/15 Aspirin 325 mg PO DAILY PRN 03/16/19 Levothyroxine Sodium 175 mcg PO DAILY 03/16/19 Multivitamin [Daily Multiple Vitamin] 1 tab PO DAILY 03/16/19 Triamterene/Hydrochlorothiazid [Triamterene-Hctz 37.5-25 mg Tb] 1 tab PO DAILY 03/16/19 Objective - Vital Signs/Intake & Output Reviewed Vital Signs: Yes Vital Signs: Vital Signs x48h Temp Pulse Resp BP Pulse Ox 03/16/19 16:00 37.0 C 78 18 136/70 H 97 03/16/19 11:11 37.0 C 76 18 138/77 H 94 Intake & Output: Intake & Output 03/13/19 03/14/19 03/15/19 03/16/19 23:59 23:59 23:59 23:59 Intake Total 2392.50 Output Total 700 Balance 1692.50 - Objective General Appearance: positive: Alert, Moderate distress Eyes Bilateral: positive: PERRL, EOMI ENT: positive: No signs of dehydration Neck: positive: No JVD. negative: Stiff neck, Carotid bruit Respiratory: positive: Chest non-tender. negative: Wheezes, Rales, Rhonchi Cardiovascular: positive: Regular rate & rhythm. negative: Gallop/S4, Friction rub Abdomen: positive: Tenderness, Guarding, Rebound, Other (no bowel sounds) Skin: positive: Warm, Dry Extremities: positive: Full ROM, No pedal edema Neurologic/Psychiatric: positive: Oriented x3, CN's nml (2-12), Motor nml - Lab Results Fish Bones: 03/16/19 05:20 03/16/19 05:20 Other Labs: Lab Results x24hrs 03/16/19 03/16/19 03/16/19 Range/Units 05:20 05:20 03:00 WBC 5.1 (4.8-10.8) x10^3/uL RBC 4.21 (4.20-5.40) 10^6/uL Hgb 13.6 (12.0-16.0) g/dL Hct 40.8 (37.0-47.0) % MCV 96.9 (81.0-99.0) fL MCH 32.3 H (27.0-31.0) pg MCHC 33.3 (32.0-36.0) g/dL RDW 12.5 (12.0-15.0) % Plt Count 195 (130-450) 10^3/uL MPV 9.7 (7.9-10.8) fL Neut # (Auto) 4.2 (1.5-6.6) 10^3/uL Lymph # (Auto) 0.5 L (1.5-3.5) 10^3/uL Victoria # (Auto) 0.3 (0.0-1.0) 10^3/uL Eos # (Auto) 0.1 (0.0-0.7) 10^3/uL Baso # (Auto) 0.0 (0.0-0.1) 10^3/uL Absolute Nucleated RBC 0.00 x10^3/uL Nucleated RBC % 0.0 /100WBC Sodium 136 (135-145) mmol/L Potassium 3.2 L (3.5-5.0) mmol/L Chloride 99 L (101-111) mmol/L Carbon Dioxide 24 (21-32) mmol/L Anion Gap 13.0 (6-13) BUN 8 (6-20) mg/dL Creatinine 0.4 (0.4-1.0) mg/dL Estimated GFR (MDRD) 156 (>89) Glucose 121 H (70-100) mg/dL Lactic Acid 0.9 (0.5-2.2) mmol/L Calcium 8.7 (8.5-10.3) mg/dL Magnesium 1.7 (1.7-2.8) mg/dL Total Bilirubin (0.2-1.0) mg/dL AST (10-42) IU/L ALT (10-60) IU/L Alkaline Phosphatase (42-121) IU/L Total Protein (6.7-8.2) g/dL Albumin (3.2-5.5) g/dL Globulin (2.1-4.2) g/dL Albumin/Globulin Ratio (1.0-2.2) Lipase (22-51) U/L Urine Color Urine Clarity (CLEAR) Urine pH (5.0-7.5) PH Ur Specific [place] (1.002-1.030) Urine Protein (NEGATIVE) mg/dL Urine Glucose (UA) (NEGATIVE) mg/dL Urine Ketones (NEGATIVE) mg/dL Urine Occult Blood (NEGATIVE) Urine Nitrite (NEGATIVE) Urine Bilirubin (NEGATIVE) Urine Urobilinogen (NORMAL) E.U./dL Ur Leukocyte Esterase (NEGATIVE) Ur Microscopic Review Urine Culture Comments 03/16/19 03/15/19 03/15/19 Range/Units 00:11 21:59 21:59 WBC 5.7 (4.8-10.8) x10^3/uL RBC 4.45 (4.20-5.40) 10^6/uL Hgb 14.5 (12.0-16.0) g/dL Hct 43.3 (37.0-47.0) % MCV 97.3 (81.0-99.0) fL MCH 32.6 H (27.0-31.0) pg MCHC 33.5 (32.0-36.0) g/dL RDW 12.3 (12.0-15.0) % Plt Count 200 (130-450) 10^3/uL MPV 9.3 (7.9-10.8) fL Neut # (Auto) 4.8 (1.5-6.6) 10^3/uL Lymph # (Auto) 0.4 L (1.5-3.5) 10^3/uL Victoria # (Auto) 0.3 (0.0-1.0) 10^3/uL Eos # (Auto) 0.1 (0.0-0.7) 10^3/uL Baso # (Auto) 0.0 (0.0-0.1) 10^3/uL Absolute Nucleated RBC 0.00 x10^3/uL Nucleated RBC % 0.0 /100WBC Sodium 139 (135-145) mmol/L Potassium 3.7 (3.5-5.0) mmol/L Chloride 98 L (101-111) mmol/L Carbon Dioxide 26 (21-32) mmol/L Anion Gap 15.0 H (6-13) BUN 10 (6-20) mg/dL Creatinine 0.5 (0.4-1.0) mg/dL Estimated GFR (MDRD) 120 (>89) Glucose 137 H (70-100) mg/dL Lactic Acid (0.5-2.2) mmol/L Calcium 9.9 (8.5-10.3) mg/dL Magnesium (1.7-2.8) mg/dL Total Bilirubin 1.3 H (0.2-1.0) mg/dL AST 27 (10-42) IU/L ALT 26 (10-60) IU/L Alkaline Phosphatase 55 (42-121) IU/L Total Protein 6.8 (6.7-8.2) g/dL Albumin 3.7 (3.2-5.5) g/dL Globulin 3.1 (2.1-4.2) g/dL Albumin/Globulin Ratio 1.2 (1.0-2.2) Lipase 21 L (22-51) U/L Urine Color YELLOW Urine Clarity CLEAR (CLEAR) Urine pH 7.0 (5.0-7.5) PH Ur Specific [place] 1.015 (1.002-1.030) Urine Protein NEGATIVE (NEGATIVE) mg/dL Urine Glucose (UA) NEGATIVE (NEGATIVE) mg/dL Urine Ketones >=80 H (NEGATIVE) mg/dL Urine Occult Blood NEGATIVE (NEGATIVE) Urine Nitrite NEGATIVE (NEGATIVE) Urine Bilirubin NEGATIVE (NEGATIVE) Urine Urobilinogen 0.2 (NORMAL) (NORMAL) E.U./dL Ur Leukocyte Esterase NEGATIVE (NEGATIVE) Ur Microscopic Review NOT INDICATED Urine Culture Comments NOT INDICATED ABX Reporting Has patient been on IV antibiotics over the past 48 hours?: No Assessment/Plan - Problem List (1) Partial small bowel obstruction Impression: Presented with nausea, vomiting and abdominal pain. CT of abdomen/pelvis shows dilated loops of small bowel but no clear transition point. Has history of multiple hernia repairs which puts her at risk for adhesions. General surgery was consulted. A Gastrografin challenge today has shown Gastrografin to go to the stomach, and only a very thin trickle beyond it. She has no flatus. Still with distended belly. Does not want to get up and walk because her abdomen is too tender. Continue - IV hydration - Dilaudid and Zofran PRN - NPO - Will hold off on NG tube placement unless her emesis persists - Change from OBV to inpatient status. (2) Pneumothorax of right lung after biopsy Conclusion/Plan: She has a small right pneumothorax as a consequence of her right lung wedge resection this past week at . No respiratory symptoms. - Chest x-ray this AM with out change - Outpatient follow up (3) Breast cancer Conclusion/Plan: She has history of triple negative breast cancer for which she was treated with chemotherapy earlier this year. Follows with Oncology at [facility]. Recent concern for metastatic disease and underwent right axillary dissection for lymph node evaluation as well as wedge resection of right lung for a nodule. - Outpatient follow up (4) Hypothyroidism Conclusion/Plan: On Synthroid. Stable. - Resume once taking PO (5) Hypokalemia supplemented IV check again in am
--- NOTE | 2019-03-16 23:07 | XRAY Report ---
Reason: 24 HR FILM/ SBO Procedure Date: 03/16/2019 Accession Number: [id number] / [id number] Procedure: XR - No-Charge 1V Abdomen CPT Code: 51262 FULL RESULT: EXAM: ABDOMEN RADIOGRAPHY EXAM DATE: 03/16/2019 10:48 PM. CLINICAL HISTORY: 24 HR FILM/ SBO. COMPARISON: NO CHARGE 1V ABDOMEN 03/16/2019 2:35 PM. TECHNIQUE: 1 view. FINDINGS: Bowel Gas Pattern: Oral contrast extends through small and large bowel loops to the mid transverse colon. Other: Right sided subcutaneous emphysema. IMPRESSION: Oral contrast present in large bowel loops, excluding complete small bowel obstruction. RADIA
[2019-03-17] MEDS: SODIUM CHLORIDE FLUSH 0.9% 10 ML SYRINGE IVP SCH ×3 (00:40→16:44)
[2019-03-17] MEDS: HYDROmorphone 0.5 MG/0.5 ML SYRINGE IVP PRN ×3 (01:01→19:21)
[2019-03-17] MEDS: LACTATED RINGERS 1,000 ML IV SCH ×3 (01:49→20:58)
[2019-03-17] MEDS: PANTOPRAZOLE 40 MG VIAL IVP SCH (06:32)
[2019-03-17] MEDS: SODIUM CHLORIDE FLUSH 0.9% 10 ML SYRINGE IVP PRN ×2 (06:36→19:21)
--- NOTE | 2019-03-17 07:23 | PROVIDER PROGRESS NOTE ---
Assessment/Plan - Problem List (1) Small bowel obstruction due to adhesions Assessment/Plan: Improving clinically and radiographically; rec: start clear liquid diet. - Current Meds Current Meds: Current Medications Generic Name Dose Route Start Last Admin Trade Name Freq PRN Reason Stop Dose Admin Enoxaparin Sodium 40 mg 03/16/19 09:00 03/16/19 08:52 Lovenox SUBQ 40 mg DAILY [facility] Administration Hydromorphone HCl 0.5 mg 03/16/19 02:09 03/17/19 01:01 Dilaudid Inj Syringe IVP 0.5 mg Q2H PRN Administration Pain 8 to 10 Lactated Ringer's 1,000 mls @ 100 mls/hr 03/16/19 03:00 03/17/19 06:36 Lr IV 100 mls/hr .Q10H [facility] Infusion Ondansetron HCl 4 mg 03/16/19 02:09 03/16/19 20:43 Zofran Inj IVP 4 mg Q6HR PRN Administration Nausea / Vomiting Pantoprazole Sodium 40 mg 03/16/19 07:00 03/17/19 06:32 Protonix IVP 40 mg QDAC [facility] Administration Sodium Chloride 10 ml 03/16/19 02:09 03/17/19 06:36 Normal Saline Flush 0.9% IVP 10 ml PRN PRN Administration NEEDED PER PROVIDER ORDERS Sodium Chloride 10 ml 03/16/19 09:00 03/17/19 00:40 Normal Saline Flush 0.9% IVP 10 ml 0100,0900,1700 [facility] Administration - Lab Result Lab results reviewed: Yes Fish Bone Diagrams: 03/16/19 05:20 03/16/19 05:20 - Diagnostic Imaging Results Diagnostic Imaging Results: Final report reviewed, Read independently Diagnostic Imaging Results Comments: SBFT challenge test shows contrast in right colon at 12 hours. - Additional Planning Condition/Complexity: Improved My Orders: My Active Orders 03/16/19 09:29 SBFT Challenge Panel [XR] Urgent 03/16/19 10:00 No-Charge 1V Abdomen [XR] Routine Subjective - Subjective Patient Reports: Feeling Better, Abdominal Pain (diminished), Nausea (mild) Objective Vital Signs: Vital Signs - 24 hr 03/16/19 03/16/19 03/16/19 07:46 11:11 16:00 Temperature 36.7 C 37.0 C 37.0 C Heart Rate [ 96 76 78 Brachial] Respiratory 18 18 18 Rate Blood Pressure 125/65 138/77 H 136/70 H [Left Brachial artery] O2 Saturation 95 94 97 03/16/19 03/16/19 03/17/19 20:01 23:52 05:00 Temperature 36.9 C 36.8 C 36.6 C Heart Rate [ 73 79 73 Brachial] Respiratory 20 18 18 Rate Blood Pressure 147/53 H 141/64 H 148/69 H [Left Brachial artery] O2 Saturation 94 93 96 Oxygen O2 Source Nasal cannula Oxygen Flow Rate 2 I&O (Last 24 Hrs): Intake and Output Totals x24h 03/15/19 03/16/19 03/17/19 23:59 23:59 23:59 Intake Total 2745.00 1125.833 Output Total 700 Balance 2045.00 1125.833 General: Alert, Oriented x3, Cooperative, No acute distress Abdomen: Soft, No tenderness, No hepatospenomegaly, No masses, Other (hyperactive bowel tones) - Results Results: Laboratory Results WBC 5.1 x10^3/uL (4.8-10.8) 03/16/19 05:20 RBC 4.21 10^6/uL (4.20-5.40) 03/16/19 05:20 Hgb 13.6 g/dL (12.0-16.0) 03/16/19 05:20 Hct 40.8 % (37.0-47.0) 03/16/19 05:20 MCV 96.9 fL (81.0-99.0) 03/16/19 05:20 MCH 32.3 pg (27.0-31.0) H 03/16/19 05:20 MCHC 33.3 g/dL (32.0-36.0) 03/16/19 05:20 RDW 12.5 % (12.0-15.0) 03/16/19 05:20 Plt Count 195 10^3/uL (130-450) 03/16/19 05:20 MPV 9.7 fL (7.9-10.8) 03/16/19 05:20 Neut # (Auto) 4.2 10^3/uL (1.5-6.6) 03/16/19 05:20 Lymph # (Auto) 0.5 10^3/uL (1.5-3.5) L 03/16/19 05:20 [place] # (Auto) 0.3 10^3/uL (0.0-1.0) 03/16/19 05:20 Eos # (Auto) 0.1 10^3/uL (0.0-0.7) 03/16/19 05:20 Baso # (Auto) 0.0 10^3/uL (0.0-0.1) 03/16/19 05:20 Absolute Nucleated RBC 0.00 x10^3/uL 03/16/19 05:20 Nucleated RBC % 0.0 /100WBC 03/16/19 05:20 Sodium 136 mmol/L (135-145) 03/16/19 05:20 Potassium 3.2 mmol/L (3.5-5.0) L 03/16/19 05:20 Chloride 99 mmol/L (101-111) L 03/16/19 05:20 Carbon Dioxide 24 mmol/L (21-32) 03/16/19 05:20 Anion Gap 13.0 (6-13) 03/16/19 05:20 BUN 8 mg/dL (6-20) 03/16/19 05:20 Creatinine 0.4 mg/dL (0.4-1.0) 03/16/19 05:20 Estimated GFR (MDRD) 156 (>89) 03/16/19 05:20 Glucose 121 mg/dL (70-100) H 03/16/19 05:20 Lactic Acid 0.9 mmol/L (0.5-2.2) 03/16/19 03:00 Calcium 8.7 mg/dL (8.5-10.3) 03/16/19 05:20 Magnesium 1.7 mg/dL (1.7-2.8) 03/16/19 05:20 Total Bilirubin 1.3 mg/dL (0.2-1.0) H 03/15/19 21:59 AST 27 IU/L (10-42) 03/15/19 21:59 ALT 26 IU/L (10-60) 03/15/19 21:59 Alkaline Phosphatase 55 IU/L (42-121) 03/15/19 21:59 Total Protein 6.8 g/dL (6.7-8.2) 03/15/19 21:59 Albumin 3.7 g/dL (3.2-5.5) 03/15/19 21:59 Globulin 3.1 g/dL (2.1-4.2) 03/15/19 21:59 Albumin/Globulin Ratio 1.2 (1.0-2.2) 03/15/19 21:59 Lipase 21 U/L (22-51) L 03/15/19 21:59 Urine Color YELLOW 03/16/19 00:11 Urine Clarity CLEAR (CLEAR) 03/16/19 00:11 Urine pH 7.0 PH (5.0-7.5) 03/16/19 00:11 Ur Specific [place] 1.015 (1.002-1.030) 03/16/19 00:11 Urine Protein NEGATIVE mg/dL (NEGATIVE) 03/16/19 00:11 Urine Glucose (UA) NEGATIVE mg/dL (NEGATIVE) 03/16/19 00:11 Urine Ketones >=80 mg/dL (NEGATIVE) H 03/16/19 00:11 Urine Occult Blood NEGATIVE (NEGATIVE) 03/16/19 00:11 Urine Nitrite NEGATIVE (NEGATIVE) 03/16/19 00:11 Urine Bilirubin NEGATIVE (NEGATIVE) 03/16/19 00:11 Urine Urobilinogen 0.2 (NORMAL) E.U./dL (NORMAL) 03/16/19 00:11 Ur Leukocyte Esterase NEGATIVE (NEGATIVE) 03/16/19 00:11 Ur Microscopic Review NOT INDICATED 03/16/19 00:11 Urine Culture Comments NOT INDICATED 03/16/19 00:11 - Procedures Procedures: Procedures REPLACEMENT OF LEFT LENS WITH SYNTH SUB, PERC APPROACH (08/23/15) REPLACEMENT OF RIGHT LENS WITH SYNTH SUB, PERC APPROACH (12/20/15) ABX Reporting Has patient been on IV antibiotics over the past 48 hours?: No
[2019-03-17] MEDS: LEVOTHYROXINE 100 MCG TABLET PO SCH (09:19)
[2019-03-17] MEDS: LEVOTHYROXINE 75 MCG TABLET PO SCH (09:19)
[2019-03-17] MEDS: ENOXAPARIN 40 MG/0.4 ML SYRINGE SUBQ SCH (09:20)
[2019-03-17] MEDS: DOCUSATE SODIUM 250 MG CAPSULE PO SCH (11:46)
--- NOTE | 2019-03-17 14:25 | PROVIDER PROGRESS NOTE ---
Subjective - Prog Note Date Prog Note Date: 03/17/19 Prog Note Time: 14:25 - Subjective Pt reports feeling: No change Subjective: on clear liquids and feels bloated. No flatus. Hurts to walk Current Medications - Current Medications Current Medications: Active Medications Docusate Sodium (Colace 250mg Capsule) 250 - 500 mg PO DAILY [facility] Last Admin: 03/17/19 11:46 Dose: 250 mg Enoxaparin Sodium (Lovenox) 40 mg SUBQ DAILY [facility] Last Admin: 03/17/19 09:20 Dose: 40 mg Hydromorphone HCl (Dilaudid Inj Syringe) 0.5 mg IVP Q2H PRN PRN Reason: Pain 8 to 10 Last Admin: 03/17/19 10:43 Dose: 0.5 mg Lactated Ringer's (Lr) 1,000 mls @ 100 mls/hr IV .Q10H [facility] Last Admin: 03/17/19 11:46 Dose: 100 mls/hr Levothyroxine Sodium (Synthroid) 100 mcg PO QDAC [facility] Last Admin: 03/17/19 09:19 Dose: 100 mcg Levothyroxine Sodium (Synthroid) 75 mcg PO QDAC [facility] Last Admin: 03/17/19 09:19 Dose: 75 mcg Ondansetron HCl (Zofran Inj) 4 mg IVP Q6HR PRN PRN Reason: Nausea / Vomiting Last Admin: 03/16/19 20:43 Dose: 4 mg Pantoprazole Sodium (Protonix) 40 mg IVP QDAC [facility] Last Admin: 03/17/19 06:32 Dose: 40 mg Sodium Chloride (Normal Saline Flush 0.9%) 10 ml IVP PRN PRN PRN Reason: NEEDED PER PROVIDER ORDERS Last Admin: 03/17/19 06:36 Dose: 10 ml Sodium Chloride (Normal Saline Flush 0.9%) 10 ml IVP 0100,0900,1700 [facility] Last Admin: 03/17/19 09:20 Dose: Not Given Simvastatin 20 mg PO DAILY 08/23/15 Aspirin 325 mg PO DAILY PRN 03/16/19 Levothyroxine Sodium 175 mcg PO DAILY 03/16/19 Multivitamin [Daily Multiple Vitamin] 1 tab PO DAILY 03/16/19 Triamterene/Hydrochlorothiazid [Triamterene-Hctz 37.5-25 mg Tb] 1 tab PO DAILY 03/16/19 Objective - Vital Signs/Intake & Output Reviewed Vital Signs: Yes Vital Signs: Vital Signs x48h Temp Pulse Resp BP Pulse Ox 03/17/19 12:31 36.8 C 81 16 163/77 H 94 03/17/19 07:35 36.5 C 73 16 136/54 H 92 Intake & Output: Intake & Output 03/14/19 03/15/19 03/16/19 03/17/19 23:59 23:59 23:59 23:59 Intake Total 2745.00 1981.500 Output Total 700 Balance 2045.00 1981.500 - Objective General Appearance: positive: Alert (sitting in bed reading paper, cup of ice on the night stand) Eyes Bilateral: positive: PERRL, EOMI ENT: positive: Pharynx nml Neck: positive: No JVD Respiratory: positive: Chest non-tender. negative: Wheezes, Rales, Rhonchi Cardiovascular: positive: Regular rate & rhythm. negative: Gallop/S4, Friction rub Abdomen: positive: Tenderness (RLQ and LLQ, very uncomfortable), Abnml bowel sounds (none). negative: Guarding, Rebound Skin: positive: Warm, Dry Extremities: positive: No pedal edema Neurologic/Psychiatric: positive: Oriented x3, CN's nml (2-12), Motor nml - Lab Results Fish Bones: 03/16/19 05:20 03/16/19 05:20 ABX Reporting Has patient been on IV antibiotics over the past 48 hours?: No Assessment/Plan - Problem List (1) Partial small bowel obstruction Impression: Presented with nausea, vomiting and abdominal pain. CT of abdomen/pelvis shows dilated loops of small bowel but no clear transition point. Has history of multiple hernia repairs which puts her at risk for adhesions. General surgery was consulted. A Gastrografin challenge 03/15 has shown Gastrografin to go to the stomach, and only a very thin trickle beyond it. Next few films have shown dye is now in colon and she has been started on clear liquids. She continues without flatus and distended belly. Does not want to get up and walk because her abdomen is too tender. Continue - IV hydration - Dilaudid and Zofran PRN - clear liquids - Will hold off on NG tube placement unless her emesis persists - Changed from OBV to inpatient status 03/16.
[2019-03-18] MEDS: HYDROmorphone 0.5 MG/0.5 ML SYRINGE IVP PRN (00:07)
[2019-03-18] MEDS: SODIUM CHLORIDE FLUSH 0.9% 10 ML SYRINGE IVP SCH ×4 (00:10→23:32)
[2019-03-18] MEDS: PANTOPRAZOLE 40 MG VIAL IVP SCH (06:20)
[2019-03-18] MEDS: LEVOTHYROXINE 100 MCG TABLET PO SCH (06:20)
[2019-03-18] MEDS: LEVOTHYROXINE 75 MCG TABLET PO SCH (06:20)
[2019-03-18] MEDS: SODIUM CHLORIDE FLUSH 0.9% 10 ML SYRINGE IVP PRN (06:20)
[2019-03-18] MEDS: LACTATED RINGERS 1,000 ML IV SCH ×2 (06:31→16:11)
--- NOTE | 2019-03-18 07:25 | PROVIDER PROGRESS NOTE ---
Subjective - Prog Note Date Prog Note Date: 03/18/19 Prog Note Time: 07:21 - Subjective Pt reports feeling: Improved Subjective: she's having loose stools now. Eating clears. Has no abd pain now, not even to move. Current Medications - Current Medications Current Medications: Active Medications Docusate Sodium (Colace 250mg Capsule) 250 - 500 mg PO DAILY [facility] Last Admin: 03/17/19 11:46 Dose: 250 mg Enoxaparin Sodium (Lovenox) 40 mg SUBQ DAILY [facility] Last Admin: 03/17/19 09:20 Dose: 40 mg Hydromorphone HCl (Dilaudid Inj Syringe) 0.5 mg IVP Q2H PRN PRN Reason: Pain 8 to 10 Last Admin: 03/18/19 00:07 Dose: 0.5 mg Lactated Ringer's (Lr) 1,000 mls @ 100 mls/hr IV .Q10H [facility] Last Admin: 03/18/19 06:31 Dose: 100 mls/hr Levothyroxine Sodium (Synthroid) 100 mcg PO QDAC [facility] Last Admin: 03/18/19 06:20 Dose: 100 mcg Levothyroxine Sodium (Synthroid) 75 mcg PO QDAC [facility] Last Admin: 03/18/19 06:20 Dose: 75 mcg Ondansetron HCl (Zofran Inj) 4 mg IVP Q6HR PRN PRN Reason: Nausea / Vomiting Last Admin: 03/16/19 20:43 Dose: 4 mg Pantoprazole Sodium (Protonix) 40 mg IVP QDAC [facility] Last Admin: 03/18/19 06:20 Dose: 40 mg Sodium Chloride (Normal Saline Flush 0.9%) 10 ml IVP PRN PRN PRN Reason: NEEDED PER PROVIDER ORDERS Last Admin: 03/18/19 06:20 Dose: 10 ml Sodium Chloride (Normal Saline Flush 0.9%) 10 ml IVP 0100,0900,1700 [facility] Last Admin: 03/18/19 00:10 Dose: 10 ml Simvastatin 20 mg PO DAILY 08/23/15 Aspirin 325 mg PO DAILY PRN 03/16/19 Levothyroxine Sodium 175 mcg PO DAILY 03/16/19 Multivitamin [Daily Multiple Vitamin] 1 tab PO DAILY 03/16/19 Triamterene/Hydrochlorothiazid [Triamterene-Hctz 37.5-25 mg Tb] 1 tab PO DAILY 03/16/19 Objective - Vital Signs/Intake & Output Reviewed Vital Signs: Yes Vital Signs: Vital Signs x48h Temp Pulse Resp BP Pulse Ox 03/18/19 07:17 36.4 C L 76 16 138/69 H 93 03/18/19 03:05 37.5 C 74 16 133/98 H 93 03/17/19 23:50 37.0 C 77 16 145/75 H 92 Intake & Output: Intake & Output 03/15/19 03/16/19 03/17/19 03/18/19 23:59 23:59 23:59 23:59 Intake Total 2745.00 3162.500 1500 Output Total 700 1175 600 Balance 2045.00 1987.500 900 - Objective General Appearance: positive: Alert Eyes Bilateral: positive: PERRL ENT: positive: No signs of dehydration Neck: positive: No JVD Respiratory: positive: Chest non-tender. negative: Wheezes, Rales, Rhonchi Cardiovascular: positive: Regular rate & rhythm, Tachycardia Abdomen: positive: Non-tender, No organomegaly, Nml bowel sounds, No distention. negative: Guarding, Rebound Skin: positive: Warm, Dry Extremities: positive: Non-tender, No pedal edema Neurologic/Psychiatric: positive: Oriented x3, CN's nml (2-12), Motor nml - Lab Results Fish Bones: 03/16/19 05:20 03/16/19 05:20 ABX Reporting Has patient been on IV antibiotics over the past 48 hours?: No Assessment/Plan - Problem List (1) Partial small bowel obstruction Impression: Presented with nausea, vomiting and abdominal pain. CT of abdomen/pelvis shows dilated loops of small bowel but no clear transition point. Has history of multiple hernia repairs which puts her at risk for adhesions. General surgery was consulted. A Gastrografin challenge 03/15 has shown Gastrografin to go to the stomach, and only a very thin trickle beyond it. Next few films showed dye in colon and she has was started on clear liquids. Flatus started last night and now liquid stools this am. Continue - IV hydration can stop - Dilaudid and Zofran PRN - clear liquids will be advance to regular diet - Will hold off on NG tube placement unless her emesis persists - Changed from OBV to inpatient status 03/16. (2) Moderate protein malnutrition Impression: she has muscle wasting, loss of SQ fat with a weight loss 0f 10% in 6 months. Nutrition consult has been done.
[2019-03-18] MEDS: DOCUSATE SODIUM 250 MG CAPSULE PO SCH (08:12)
[2019-03-18] MEDS: ENOXAPARIN 40 MG/0.4 ML SYRINGE SUBQ SCH (08:12)
--- NOTE | 2019-03-18 09:58 | PROVIDER PROGRESS NOTE ---
Assessment/Plan - Problem List (1) Small bowel obstruction due to adhesions Assessment/Plan: clinically improving; rec: advance to [facility] soft diet as [place]; ? home tomorrow if continues to improve; will not see again unless asked; thanks, - Current Meds Current Meds: Current Medications Generic Name Dose Route Start Last Admin Trade Name Freq PRN Reason Stop Dose Admin Docusate Sodium 250 - 500 mg 03/17/19 11:00 03/18/19 08:12 Colace 250mg Capsule PO Not Given DAILY [facility] Enoxaparin Sodium 40 mg 03/16/19 09:00 03/18/19 08:12 Lovenox SUBQ 40 mg DAILY [facility] Administration Hydromorphone HCl 0.5 mg 03/16/19 02:09 03/18/19 00:07 Dilaudid Inj Syringe IVP 0.5 mg Q2H PRN Administration Pain 8 to 10 Lactated Ringer's 1,000 mls @ 100 mls/hr 03/16/19 03:00 03/18/19 06:31 Lr IV 100 mls/hr .Q10H [facility] Administration Levothyroxine Sodium 100 mcg 03/17/19 09:00 03/18/19 06:20 Synthroid PO 100 mcg QDAC [facility] Administration Levothyroxine Sodium 75 mcg 03/17/19 09:00 03/18/19 06:20 Synthroid PO 75 mcg QDAC [facility] Administration Ondansetron HCl 4 mg 03/16/19 02:09 03/16/19 20:43 Zofran Inj IVP 4 mg Q6HR PRN Administration Nausea / Vomiting Pantoprazole Sodium 40 mg 03/16/19 07:00 03/18/19 06:20 Protonix IVP 40 mg QDAC [facility] Administration Sodium Chloride 10 ml 03/16/19 02:09 03/18/19 06:20 Normal Saline Flush 0.9% IVP 10 ml PRN PRN Administration NEEDED PER PROVIDER ORDERS Sodium Chloride 10 ml 03/16/19 09:00 03/18/19 08:12 Normal Saline Flush 0.9% IVP 10 ml 0100,0900,1700 [facility] Administration - Lab Result Lab results reviewed: Yes Fish Bone Diagrams: 03/16/19 05:20 03/16/19 05:20 - Additional Planning Condition/Complexity: Improved Time Spent: 15-30 minutes Subjective - Subjective Patient Reports: Feeling Better, Resting Comfortably, No Complaints (no N/V, abd pain; tolerating clear liquids well) Objective Vital Signs: Vital Signs - 24 hr 03/17/19 03/17/19 03/17/19 12:31 15:42 20:25 Temperature 36.8 C 36.6 C 36.8 C Heart Rate [ 81 76 78 Brachial] Respiratory 16 20 16 Rate Blood Pressure 163/77 H 153/64 H 138/65 H [Left Brachial artery] O2 Saturation 94 93 96 03/17/19 03/18/19 03/18/19 23:50 03:05 07:17 Temperature 37.0 C 37.5 C 36.4 C L Heart Rate [ 77 74 76 Brachial] Respiratory 16 16 16 Rate Blood Pressure 145/75 H 133/98 H 138/69 H [Left Brachial artery] O2 Saturation 92 93 93 Oxygen O2 Source Room air Oxygen Flow Rate 2 I&O (Last 24 Hrs): Intake and Output Totals x24h 03/16/19 03/17/19 03/18/19 23:59 23:59 23:59 Intake Total 2745.00 3162.500 1800 Output Total 700 1175 600 Balance 2045.00 0664.352 6659 General: Alert, Oriented x3, Cooperative Abdomen: Soft, No hepatospenomegaly, No masses, Other (minimal llq tenderness, umbilical hernia reducible nontender; multiple loose stools over past 24 hours.) - Results Results: Laboratory Results WBC 5.1 x10^3/uL (4.8-10.8) 03/16/19 05:20 RBC 4.21 10^6/uL (4.20-5.40) 03/16/19 05:20 Hgb 13.6 g/dL (12.0-16.0) 03/16/19 05:20 Hct 40.8 % (37.0-47.0) 03/16/19 05:20 MCV 96.9 fL (81.0-99.0) 03/16/19 05:20 MCH 32.3 pg (27.0-31.0) H 03/16/19 05:20 MCHC 33.3 g/dL (32.0-36.0) 03/16/19 05:20 RDW 12.5 % (12.0-15.0) 03/16/19 05:20 Plt Count 195 10^3/uL (130-450) 03/16/19 05:20 MPV 9.7 fL (7.9-10.8) 03/16/19 05:20 Neut # (Auto) 4.2 10^3/uL (1.5-6.6) 03/16/19 05:20 Lymph # (Auto) 0.5 10^3/uL (1.5-3.5) L 03/16/19 05:20 [place] # (Auto) 0.3 10^3/uL (0.0-1.0) 03/16/19 05:20 Eos # (Auto) 0.1 10^3/uL (0.0-0.7) 03/16/19 05:20 Baso # (Auto) 0.0 10^3/uL (0.0-0.1) 03/16/19 05:20 Absolute Nucleated RBC 0.00 x10^3/uL 03/16/19 05:20 Nucleated RBC % 0.0 /100WBC 03/16/19 05:20 Sodium 136 mmol/L (135-145) 03/16/19 05:20 Potassium 3.2 mmol/L (3.5-5.0) L 03/16/19 05:20 Chloride 99 mmol/L (101-111) L 03/16/19 05:20 Carbon Dioxide 24 mmol/L (21-32) 03/16/19 05:20 Anion Gap 13.0 (6-13) 03/16/19 05:20 BUN 8 mg/dL (6-20) 03/16/19 05:20 Creatinine 0.4 mg/dL (0.4-1.0) 03/16/19 05:20 Estimated GFR (MDRD) 156 (>89) 03/16/19 05:20 Glucose 121 mg/dL (70-100) H 03/16/19 05:20 Lactic Acid 0.9 mmol/L (0.5-2.2) 03/16/19 03:00 Calcium 8.7 mg/dL (8.5-10.3) 03/16/19 05:20 Magnesium 1.7 mg/dL (1.7-2.8) 03/16/19 05:20 Total Bilirubin 1.3 mg/dL (0.2-1.0) H 03/15/19 21:59 AST 27 IU/L (10-42) 03/15/19 21:59 ALT 26 IU/L (10-60) 03/15/19 21:59 Alkaline Phosphatase 55 IU/L (42-121) 03/15/19 21:59 Total Protein 6.8 g/dL (6.7-8.2) 03/15/19 21:59 Albumin 3.7 g/dL (3.2-5.5) 03/15/19 21:59 Globulin 3.1 g/dL (2.1-4.2) 03/15/19 21:59 Albumin/Globulin Ratio 1.2 (1.0-2.2) 03/15/19 21:59 Lipase 21 U/L (22-51) L 03/15/19 21:59 Urine Color YELLOW 03/16/19 00:11 Urine Clarity CLEAR (CLEAR) 03/16/19 00:11 Urine pH 7.0 PH (5.0-7.5) 03/16/19 00:11 Ur Specific [place] 1.015 (1.002-1.030) 03/16/19 00:11 Urine Protein NEGATIVE mg/dL (NEGATIVE) 03/16/19 00:11 Urine Glucose (UA) NEGATIVE mg/dL (NEGATIVE) 03/16/19 00:11 Urine Ketones >=80 mg/dL (NEGATIVE) H 03/16/19 00:11 Urine Occult Blood NEGATIVE (NEGATIVE) 03/16/19 00:11 Urine Nitrite NEGATIVE (NEGATIVE) 03/16/19 00:11 Urine Bilirubin NEGATIVE (NEGATIVE) 03/16/19 00:11 Urine Urobilinogen 0.2 (NORMAL) E.U./dL (NORMAL) 03/16/19 00:11 Ur Leukocyte Esterase NEGATIVE (NEGATIVE) 03/16/19 00:11 Ur Microscopic Review NOT INDICATED 03/16/19 00:11 Urine Culture Comments NOT INDICATED 03/16/19 00:11 - Procedures Procedures: Procedures REPLACEMENT OF LEFT LENS WITH SYNTH SUB, PERC APPROACH (08/23/15) REPLACEMENT OF RIGHT LENS WITH SYNTH SUB, PERC APPROACH (12/20/15) ABX Reporting Has patient been on IV antibiotics over the past 48 hours?: No
[2019-03-19] MEDS: LACTATED RINGERS 1,000 ML IV SCH (01:47)
[2019-03-19] MEDS: PANTOPRAZOLE 40 MG VIAL IVP SCH (06:03)
[2019-03-19] MEDS: LEVOTHYROXINE 100 MCG TABLET PO SCH (06:03)
[2019-03-19] MEDS: LEVOTHYROXINE 75 MCG TABLET PO SCH (06:03)
[2019-03-19] MEDS: SODIUM CHLORIDE FLUSH 0.9% 10 ML SYRINGE IVP PRN (06:03)
[2019-03-19 07:17] LABS: CALCIUM 8.3 mg/dL (8.5-10.3); CREATININE 0.3 mg/dL (0.4-1.0)
[2019-03-19] MEDS ORDERED: POTASSIUM CHLORIDE 20 MEQ TABLET PO ONE (07:49)
--- NOTE | 2019-03-19 07:54 | Discharge Plan ---
Discharge Plan Problem Reviewed?: Yes Disposition: Home, Self Care Condition: Stable Prescriptions: Potassium Chloride 40 meq PO BID #3 [id number] Diet: Regular Activity Restrictions: Activity as Tolerated Shower Restrictions: No Driving Restrictions: No Health Concerns: You came to the hospital with generalized abdominal pain, nausea, vomiting. We found you to have a partial small bowel obstruction. Small bowel obstructions happen because the bowel will get caught on adhesions which are scar tissue from previous surgeries. You have had previous abdominal surgeries. Plan of Treatment: Patient with a small bowel obstruction presents and does not have a fever or elevated serum white cell count, we can usually wait and see what happens. We rest her bowel by not giving you any food. This works for you. You were able to have flatus and diarrhea and we were able to start feeding you. You have had an advance diet and has tolerated it well. The only other thing we found during her stay was a low potassium Care Goals: 1. Eat a soft bland diet for the next week, low in fiber 2. Because your potassium is low, please take 40 mEq of potassium tonight, tomorrow morning and tomorrow night only. 3. See your primary care provider, Peg Flannery, and follow-up in the next week for a blood draw to make sure your potassium level is normal Assessment: Patient expressed understanding of treatment and goals No Smoking: If you smoke, Please STOP! Call for help. Follow-up with: Peg Flannery PA [Primary Care Provider] -
[2019-03-19 08:30] VITALS: BP 144/66
[2019-03-19] MEDS: SODIUM CHLORIDE FLUSH 0.9% 10 ML SYRINGE IVP SCH (09:05)
[2019-03-19] MEDS: DOCUSATE SODIUM 250 MG CAPSULE PO SCH (09:05)
[2019-03-19] MEDS: ENOXAPARIN 40 MG/0.4 ML SYRINGE SUBQ SCH (09:05)
--- NOTE | 2019-03-19 14:34 | DISCHARGE SUMMARY ---
"Discharge Summary Admit Date: 03/16/19 Discharge Date: 03/19/19 Discharging Provider: Mickie Rodriguez MD Primary Care Provider: JOSE Jha Code Status: Attempt Resuscitation (see advanced care planning conversation) Condition at Discharge: Stable Discharge Disposition: 01 Home, Self Care - DIAGNOSES Discharge Diagnoses with Status of Each Condition: 1. Partial small bowel obstruction, resolved 2. Pneumothorax of right lung after biopsy, present on admission 3. Breast cancer 4. Hypothyroidism 5. Moderate protein calorie malnutrition 6. Hypokalemia - HPI History of Present Illness: This is a 73 year old female with a past medical history significant for breast cancer, and hypothyroidism who presents from complaining of abdominal pain that began yesterday afternoon. She reports eating pie for lunch and then developing abdominal bloating and painful gas. She then had two episodes nonbloody emesis. The pain was generalized but quite severe. She was unable to pass gas but reports having one nonbloody bowel movement after the onset of pain. She reports a prior history of multiple hernia repairs but denies a history of bowel obstruction. She was diagnosed with breast cancer in the fall of last year. Her Oncologist is at [facility] but the cancer is reportedly triple negative. She was treated with chemotherapy and was doing well until a CT this summer was concerning for possible metastasis. She underwent right axillary dissection at in February and per the patient and , the lymph nodes were negative for malignancy although 5 nodes showed prior history of malignancy that responded to treatment. She was found to have lung nodule and she underwent right wedge resection last Thursday at as well. This was complicated by a small pneumothorax and a chest tube was placed until this past Thursday when it was removed and she was discharged home. She currently denies chest pain, dyspnea, fevers, chills. In the ER, she had two further episodes of clear emesis. She underwent a CT of the abdomen/pelvis which showed dilated small bowel loops with mesenteric edema and ascites along with a couple of hernias. A CT of the chest was also performed which showed postoperative changes a small right pneumothorax. She will be admitted under observation for further management. History - Past Medical History Cardiovascular: reports: Hypertension, High cholesterol Respiratory: reports: None Endocrine/Autoimmune: reports: HyPOthyroidism PRODUCT SUPPORT REP: reports: Breast cancer : reports: None HEENT: reports: None Psych: reports: Anxiety Musculoskeletal: reports: Osteoarthritis, Osteoporosis, Chronic back pain Derm: reports: None MRSA Hx?: No - Past Surgical History General: reports: Appendectomy, Other (Hernia repair - umbilical and inguinal) Ortho: reports: Other /PRODUCT SUPPORT REP: reports: Hysterectomy HEENT: reports: Tonsil/Adenoidectomy - CONSULTS | PROCEDURES Consultations: Chito Fritz, General Surgery Procedures: 1. Abdomen and pelvis CT: Postoperative changes in the right middle lobe with small right pneumothorax and associated subcutaneous emphysema. Small bowel dilation in the pelvis with mesenteric edema and ascites. Previous right inguinal hernia repair. Dilated small bowel loops closely associated with hernia mesh. Superior to the hernia mesh there are 2 anterior abdominal wall hernias. One below into the left of the umbilicus containing fat. And one just to the right of the umbilicus containing a nondilated loop of bowel. Small amount of ascites in the pelvis. 2. Chest CT postoperative changes in the right middle lobe. Right greater than left basilar atelectasis. Small right pneumothorax. Extensive subcutaneous emphysema of the right chest wall. 3. Chest x-ray with right apical pneumothorax at 1.8 cm. 4. Gastrografin upper GI challenge with serial abdomen radiography. The initial film on March 16 showed a small amount of enteric contrast in the gastric fundus. As we watched on subsequent films oral contrast drifted down to the large bowel. - HOSPITAL COURSE Hospital Course: Patient was initially placed n.p.o. She did not require an NG tube. She had no episodes of emesis. But she continued to have abdominal pain and prefer to lay perfectly still on the bed. Just getting up to urinate caused her to have significant increase peritoneal pain. At no time did she have a fever or white cell count. Over 48 hours she was expectantly managed. KUB showed Gastrografin making it to the large bowel. She then had liquid diarrhea and was started on liquid diet. That was transition to a regular diet the next day. She was tolerating food, had [place] no abdominal pain by late March 18. General surgery preferred to keep her 1 more day to make sure she did not have recurrence. Subcutaneous emphysema was visible on exam. But did not enlarge or extend. She had no respiratory distress with her pneumothorax. O2 sats remained 93 to 96% on room air. She was noted to have moderate protein calorie malnutrition with loss of subcutaneous fat as well as loss of 10% of her body weight in the last 6 months. Nutrition services set down with her to go over diet and meal plans to help her improve nutrition in the outpatient setting. Her usual thyroid meds were resumed. She is to follow up with Oncology about continued care for her breast ca and the final pathology of the lung nodule removed. She was discharged in stable condition. She is 5 foot 5 inches tall and weighs 63 kg. Hair is cut close to the scalp or rather it may be growing in after chemo. Temperature 36.9, pulse 75 and regular, blood pressure 144/66, respirations 16 and 93% on room air. Oral mucosa are pink and moist. She is eating 75 to 100% of her food. Neck is supple without goiter or bruits lungs are clear to auscultation and percussion. Occasionally there is a crackle at the base of both lungs and with a good cough it disappears. There is equal and symmetrical lung sounds. PMI is normally placed with a regular rate and rhythm. Abdomen has multiple ventral hernias that are easily palpable and reducible. Both to the right and left of the umbilicus. Hyperactive bowel sounds. She has had several bowel movements between yesterday and today. Extremities are warm. She is ambulating in her room without assistance. Today's potassium is 2.8. She is received 1 oral dose of supplementation. I am sending her home on 40 mEq tonight, tomorrow morning, and tomorrow night. I am asking that her PCP recheck her BMP in the next week. Dr. Fritz does not feel he needs to see this patient in follow-up. Greater than 30 minutes was spent coordinating discharge - ALLERGIES Allergies/Adverse Reactions: Allergies Allergy/AdvReac Type Severity Reaction Status Date / Time No Known Drug Allergies Allergy Verified 03/15/19 21:41 - MEDICATIONS Home Medications: Ambulatory Orders Medication Instructions Recorded Confirmed Simvastatin 20 mg PO DAILY 08/23/15 03/16/19 Aspirin 325 mg PO DAILY PRN 03/16/19 03/16/19 Levothyroxine Sodium 175 mcg PO DAILY 03/16/19 03/16/19 Multivitamin [Daily Multiple 1 tab PO DAILY 03/16/19 03/16/19 Vitamin] Triamterene/Hydrochlorothiazid 1 tab PO DAILY 03/16/19 03/16/19 [Triamterene-Hctz 37.5-25 mg Tb] Potassium Chloride 40 meq PO BID #3 tab.er.prt 03/19/19 - LABS Result Diagrams: 03/16/19 05:20 03/19/19 07:01 - TIME SPENT Time Spent in Discharge (Minutes): 35"
== END 2019-03-19 11:30 | disposition home or self-care (01) | DRG 389 ==
LOC: ED 21:25 → OBS 03-16 02:10 → OBSVTOIN 03-16 17:51 → MS2 03-16 18:31
PROVIDERS: ADMIT Internal Medicine; ATTEND Specialist
DX: K56.51 Intestinal adhesions [bands], with partial obstruction (principal); J95.811 Postprocedural pneumothorax; E44.0 Moderate protein-calorie malnutrition; T81.82XA Emphysema (subcutaneous) resulting from a procedure, initial encounter; Y83.6 Removal of other organ (partial) (total) as the cause of abnormal reaction of the patient, or of later complication, without mention of misadventure at the time of the procedure; E87.6 Hypokalemia; E03.9 Hypothyroidism, unspecified; Z95.828 Presence of other vascular implants and grafts; K42.9 Umbilical hernia without obstruction or gangrene; I10 Essential (primary) hypertension; E78.00 Pure hypercholesterolemia, unspecified; Z90.710 Acquired absence of both cervix and uterus; Z90.79 Acquired absence of other genital organ(s); Z90.2 Acquired absence of lung [part of]; Z85.3 Personal history of malignant neoplasm of breast; Z92.21 Personal history of antineoplastic chemotherapy; Z79.899 Other long term (current) drug therapy; Z68.22 Body mass index [BMI] 22.0-22.9, adult
CPT/HCPCS: 36415; 71045; 71260; 74177; 80048; 80053; 81003; 83605; 83690; 83735; 85025; 93005; 94761; 96361; 96365; 96366; 96372; 96375; 96376; 99284; 99285; A9270; G0378; J1170; J1650; J7120; Q9963; Q9967; 74018; 81001; 87086

== ENCOUNTER 2019-03-29 14:50 | Outpatient (CLI) | payer MEDICARE, OTHER ==
[2019-03-29 15:09] LABS: CALCIUM 9.6 mg/dL (8.5-10.3); CREATININE 0.6 mg/dL (0.4-1.0)
== END 2019-03-29 14:51 | disposition home or self-care (01) ==
LOC: LAB 14:50
PROVIDERS: ATTEND Physician Assistant
DX: E87.6 Hypokalemia (principal)
CPT/HCPCS: 36415; 80048

== ENCOUNTER 2019-07-22 08:15 | Outpatient (CLI) | payer MEDICARE, OTHER ==
[2019-07-22 09:28] LABS: ALBUMIN 4.3 g/dL (3.2-5.5); ALBUMIN/GLOBULIN RATIO 1.7 (1.0-2.2); ALKALINE PHOSPHATASE 56 IU/L (42-121); ALT ALANINE AMINOTRANSFERASE 26 IU/L (10-60); AST ASPARTATE AMINOTRANSFERASE 30 IU/L (10-42); BILIRUBIN,TOTAL 0.8 mg/dL (0.2-1.0); BUN - BLOOD UREA NITROGEN 11 mg/dL (6-20); CALCIUM 9.5 mg/dL (8.5-10.3); CARBON DIOXIDE - CO2 32 mmol/L (21-32); CHLORIDE 101 mmol/L (101-111); CHOL/HDL RATIO 2.6 (<4.4); CHOLESTEROL 229 mg/dL; CREATININE 0.4 mg/dL (0.4-1.0); GFR - MDRD 155 (>89); GLUCOSE 97 mg/dL (70-100); HDL CHOLESTEROL 89 mg/dL; LDL CHOLESTEROL,CALCULATED 129 mg/dL; LDL/HDL RATIO 1.4 (<4.4); SODIUM 140 mmol/L (135-145); TOTAL PROTEIN 6.9 g/dL (6.7-8.2); VLDL CHOLESTEROL 11 mg/dL
[2019-07-22 15:51] LABS: CREATININE,URINE 35.6 mg/dL
[2019-07-22 16:12] LABS: MICROALBUMIN,URINE < 0.2 mg/dL (0-300.0)
== END 2019-07-22 08:16 | disposition home or self-care (01) ==
LOC: LAB 08:15
PROVIDERS: ATTEND Physician Assistant
DX: E03.9 Hypothyroidism, unspecified (principal); I10 Essential (primary) hypertension; M85.80 Other specified disorders of bone density and structure, unspecified site; E78.5 Hyperlipidemia, unspecified
CPT/HCPCS: 36415; 80053; 80061; 82043; 82306; 82570; 83721; 84443

== ENCOUNTER 2019-08-04 12:56 | Outpatient (CLI) | payer MEDICARE, OTHER ==
--- NOTE | 2019-08-05 08:46 | DEXA Report ---
Reason: POST MENOPAUSAL Procedure Date: 08/04/2019 Accession Number: [id number] / [id number] Procedure: DEX - Dexa Spine and/or Hip CPT Code: Final Report FULL RESULT: EXAM: Dexa Spine and/or Hip DATE: 08/04/2019 1:39 PM CLINICAL HISTORY: POST MENOPAUSAL TECHNIQUE: Dual energy x-ray absorptiometry (DXA) was performed on a [employer] System. Regions measured are the AP Spine, femoral neck, and if needed forearm. COMPARISON: None. In accordance with the International Society for Clinical Densitometry (ISCD) guidelines, data from previous exams may be reanalyzed using current recommendations and techniques. This is done to allow a more accurate basis for comparison with the current study. FINDINGS: The data for the lumbar spine is as follows: BMD (g/cm/cm) T-SCORE Z-SCORE REGION L1 0.894 -2.0 -0.1 L2 1.001 -1.7 0.2 L3 1.194 -0.1 1.8 L4 1.089 -0.9 0.9 TOTAL 1.049 -1.1 0.7 NOTE: All evaluable vertebrae are used for classification The data for the hip is as follows: BMD (g/cm/cm) T-SCORE Z-SCORE REGION Neck 0.675 -2.6 -0.6 TOTAL 0.812 -1.6 0.3 NOTE: The femoral neck or total proximal femur, whichever is lowest, is used for classification. IMPRESSION: THE WHO CLASSIFICATION BASED ON THE INTERNATIONAL REFERENCE STANDARD IS OSTEOPOROSIS. THE FRACTURE RISK IS HIGH. RECOMMENDATION: Patients with diagnosis of osteoporosis or osteopenia should have regular bone mineral density assessment. For those eligible for Medicare, routine testing is allowed once every 2 years. Testing frequency can be increased for patients who have rapidly progressing disease or for those who are receiving medical therapy to restore bone mass. COMMENT: World Health Organization (WHO) definitions for osteoporosis and osteopenia: NORMAL BMD: T-score at -1.0 or higher, fracture risk is low OSTEOPENIA BMD: T-score between -1.0 and -2.5, fracture risk is increased. OSTEOPOROSIS BMD: T-score at -2.5 or lower, fracture risk is high. National Osteoporosis Foundation recommends: 1. Obtain adequate dietary calcium (at least 1200 mg per day) and vitamin D (400-800 international units per day). 2. Participate, as appropriate, in regular weightbearing and muscle-strengthening exercise. 3. Avoid tobacco use and reduce alcohol and caffeine intake. 4. For more detailed information see the website at www.NOF.org.
== END 2019-08-04 12:57 | disposition home or self-care (01) ==
LOC: DI 12:56
PROVIDERS: ATTEND Physician Assistant
DX: M81.0 Age-related osteoporosis without current pathological fracture (principal)
CPT/HCPCS: 77080

== ENCOUNTER 2020-05-10 15:36 | Emergency (ER) | payer MEDICARE, OTHER ==
[2020-05-10 15:44] VITALS: BP 152/78
--- NOTE | 2020-05-10 16:43 | ED Physician Documentation ---
PD HPI WOUND RECHECK - Stated complaint Stated Complaint: DRAIN REMOVAL - Chief complaint Chief Complaint: General - Histroy obtained from History obtained from: Patient - History of Present Illness Location: Abdomen Timing - onset: How many weeks ago (1) Recently seen: Surgery (abd hernia repair a week ago and has [address] with minimal drainage. She talked with her surgeon office about the removal of them, which the surgeon had directed could be done by PMD. However, PMD could not get her in, so she asked if could be done in ER.) Review of Systems Constitutional: denies: Fever, Chills Nose: denies: Rhinorrhea / runny nose, Congestion Throat: denies: Sore throat Respiratory: denies: Cough GI: denies: Nausea, Vomiting, Diarrhea PD PAST MEDICAL HISTORY - Past Medical History Cardiovascular: Hypertension, High cholesterol Respiratory: Other (last week VATS wedge resection of right lung for pulmonary nodule; path pending.) Neuro: None Endocrine/Autoimmune: HyPOthyroidism GI: Other (multiple hernia repairs) [employer] BENDER: Breast cancer (recent lumpectomy, chemotherapy and right axillary ln dissection; followed in [place] ?stage 2 disease, pending path on lung nodule recently resected.) : None HEENT: None Psych: Anxiety Musculoskeletal: Osteoarthritis, Osteoporosis, Chronic back pain Derm: None - Past Surgical History Past Surgical History: Yes General: Appendectomy, Other (hernia repairs x 3; details not presently available) Ortho: Other /[employer] TUBE BENDER: Hysterectomy, Oophrectomy, Other (rectocele repair) HEENT: Tonsil/Adenoidectomy - Present Medications Home Medications: Ambulatory Orders Medication Instructions Recorded Confirmed Simvastatin 20 mg PO DAILY 08/23/15 03/16/19 Aspirin 325 mg PO DAILY PRN 03/16/19 03/16/19 Levothyroxine Sodium 175 mcg PO DAILY 03/16/19 03/16/19 Multivitamin [Daily Multiple 1 tab PO DAILY 03/16/19 03/16/19 Vitamin] Triamterene/Hydrochlorothiazid 1 tab PO DAILY 03/16/19 03/16/19 [Triamterene-Hctz 37.5-25 mg Tb] Potassium Chloride 40 meq PO BID #3 tab.er.prt 03/19/19 - Allergies Allergies/Adverse Reactions: Allergies Allergy/AdvReac Type Severity Reaction Status Date / Time No Known Drug Allergies Allergy Verified 05/10/20 15:44 - Social History Does the pt smoke?: No Smoking Status: Never smoker Does the pt drink ETOH?: Yes Does the pt have substance abuse?: No - Immunizations Immunizations are current?: Yes - POLST Patient has POLST: No PD ED PE NORMAL - Vitals Vital signs reviewed: Yes - General General: Alert and oriented X 3, No acute distress, Well developed/nourished - Cardiac Cardiac: RRR, No murmur - Respiratory Respiratory: Clear bilaterally - Abdomen Abdomen: Normal bowel sounds (ss), Soft, Non tender, Non distended, Other (lower anterior abd wall with [address], with the suction bulb on one having only about 8 ml of drainage since this morning. No purulence. ) - Derm Derm: Normal color, Warm and dry Results - Vitals Vitals: Vital Signs - 24 hr 05/10/20 15:39 Temperature 36.8 C Heart Rate 88 Respiratory 18 Rate Blood Pressure 152/78 H O2 Saturation 99 Oxygen O2 Source Room air PD MEDICAL DECISION MAKING - ED course Complexity details: considered differential (having minimal drainage from post op drains and she talked with her surgeon who was okay with drain removal by PMD or ER. ), d/w patient ED course: 2 drains removed from lower abd. No redness, purulence, nor local tenderness. Departure - Departure Disposition: 01 Home, Self Care Clinical Impression: Change or removal of drains Condition: Stable Record reviewed to determine appropriate education?: Yes Follow-Up: Peg Flannery PA [Primary Care Provider] - Comments: Follow up with your Surgeon next week as planned. Dressing for the drain holes as they will likely still drain some. Recheck sooner with your surgeon if you develop fever, purulent drainage, increased abdominal pains, etc. Discharge Date/Time: 05/10/20 16:45
== END 2020-05-10 16:45 | disposition home or self-care (01) ==
LOC: ED 15:36
DX: Z48.03 Encounter for change or removal of drains (principal); I10 Essential (primary) hypertension; Z90.2 Acquired absence of lung [part of]; Z85.3 Personal history of malignant neoplasm of breast
CPT/HCPCS: 99281; 99282

== ENCOUNTER 2021-03-13 08:19 | Outpatient (CLI) | payer MEDICARE, OTHER ==
[2021-03-13 08:39] LABS: BASOPHILS % (AUTO) 0.8 %; EOSINOPHILS # (AUTO) 0.4 10^3/uL (0.0-0.7); EOSINOPHILS % (AUTO) 11.1 %; HCT - HEMATOCRIT 48.2 % (37.0-47.0); HGB - HEMOGLOBIN 16.1 g/dL (12.0-16.0); LYMPHOCYTES % (AUTO) 26.4 %; MEAN CORPUSCULAR HEMOGLOBIN 33.7 pg (27.0-31.0); MEAN CORPUSCULAR HGB CONC 33.4 g/dL (32.0-36.0); MEAN CORPUSCULAR VOLUME 100.8 fL (81.0-99.0); MEAN PLATELET VOLUME 8.8 fL (7.9-10.8); MONOCYTES # (AUTO) 0.3 10^3/uL (0.0-1.0); MONOCYTES % (AUTO) 8.8 %; NEUTROPHILS % (AUTO) 52.4 %; PLT - PLATELET COUNT 183 10^3/uL (130-450); RED BLOOD COUNT 4.78 10^6/uL (4.20-5.40); RED CELL DISTRIBUTION WIDTH 12.7 % (12.0-15.0); WHITE BLOOD COUNT 3.9 x10^3/uL (4.8-10.8)
[2021-03-13 08:55] LABS: ALBUMIN 4.5 g/dL (3.2-5.5); ALBUMIN/GLOBULIN RATIO 1.7 (1.0-2.2); ALKALINE PHOSPHATASE 55 IU/L (42-121); ALT ALANINE AMINOTRANSFERASE 23 IU/L (10-60); AST ASPARTATE AMINOTRANSFERASE 30 IU/L (10-42); BILIRUBIN,TOTAL 1.1 mg/dL (0.2-1.0); BUN - BLOOD UREA NITROGEN 17 mg/dL (6-20); CALCIUM 9.7 mg/dL (8.5-10.3); CARBON DIOXIDE - CO2 31 mmol/L (21-32); CHLORIDE 97 mmol/L (101-111); CHOL/HDL RATIO 2.5 (<4.4); CHOLESTEROL 227 mg/dL; CREATININE 0.5 mg/dL (0.4-1.0); GFR - MDRD 120 (>89); GLUCOSE 103 mg/dL (70-100); HDL CHOLESTEROL 90 mg/dL; LDL CHOLESTEROL,CALCULATED 129 mg/dL; LDL/HDL RATIO 1.4 (<4.4); POTASSIUM 3.7 mmol/L (3.5-5.0); SODIUM 137 mmol/L (135-145); TOTAL PROTEIN 7.2 g/dL (6.7-8.2); TRIGLYCERIDES 42 mg/dL; VLDL CHOLESTEROL 8 mg/dL
[2021-03-13 08:58] LABS: CREATININE,URINE 52.8 mg/dL
[2021-03-13 09:16] LABS: MICROALBUMIN,URINE < 0.2 mg/dL (0-300.0)
== END 2021-03-13 08:20 | disposition home or self-care (01) ==
LOC: LAB 08:19
PROVIDERS: ATTEND Physician Assistant
DX: I10 Essential (primary) hypertension (principal); E78.5 Hyperlipidemia, unspecified; E03.9 Hypothyroidism, unspecified; Z85.3 Personal history of malignant neoplasm of breast
CPT/HCPCS: 36415; 80053; 80061; 82043; 82570; 83721; 84443; 85025

== ENCOUNTER 2021-10-23 12:54 | Outpatient (CLI) | payer MEDICARE, OTHER ==
--- NOTE | 2021-10-23 16:01 | DEXA Report ---
PROCEDURE: Dexa Spine and/or Hip INDICATIONS: OSTEOPOROSIS TECHNIQUE: Dual energy x-ray absorptiometry (DXA) was performed on a [employer] (T/A) System. Regions measur ed are the AP Spine, femoral neck, and if needed forearm. COMPARISON: 08/04/2019. FINDINGS: Lumbar Spine: Bone Mineral Density 1.036 g/cm/cm,T score -1.2, osteopenia Left Hip: Bone Mineral Density 0.840 g/cm/cm,T score -1.3, osteopenia Left Femoral Neck: Bone Mineral Density 0.648 g/cm/cm, T score -2.8, osteoporosis (T score greater or equal to -1.0: NORMAL) (T score from -1.1 to -2.4: OSTEOPENIA) (T score less than or equal to -2.5 to: OSTEOPOROSIS) Impression: Osteoporosis. Patient is at high risk for fracture. Of note, total left hip bone mineral density has increased 3.2% since 2019. Total lumbar spine bone d ensity has decreased approximately 0.9%. Patients with diagnosis of osteoporosis or osteopenia should have regular bone mineral density assess ment. For those eligible for Medicare, routine testing is allowed once every 2 years. Testing frequ ency can be increased for patients who have rapidly progressing disease or for those who are receivin g medical therapy to restore bone mass. Reviewed by: Jame Reagan MD on 10/23/2021 3:59 PM PDT Approved by: Jame Reagan MD on 10/23/2021 3:59 PM PDT Station ID: [id number]
== END 2021-10-23 12:55 | disposition home or self-care (01) ==
LOC: DI 12:54
PROVIDERS: ATTEND Physician Assistant
DX: M81.0 Age-related osteoporosis without current pathological fracture (principal)

== ENCOUNTER 2022-01-29 13:34 | Outpatient (CLI) | payer MEDICARE, OTHER ==
--- NOTE | 2022-01-29 17:08 | XRAY Report ---
PROCEDURE: Foot 3 View RT INDICATIONS: PAINFUL RIGHT FOOT TECHNIQUE: 3 views of the foot were acquired. COMPARISON: None. FINDINGS: Bones: Second MTP joint dislocation noted.. No suspicious bony lesions. Metatarsus primus varus and hallux valgus deformity noted. Soft tissues: No tibiotalar joint effusion. Achilles tendon appears normal. IMPRESSION: Dislocation at second MTP joint. No definite fracture is seen. Moderate hallux valgus deformity. Eufemia re tibiotalar joint osteoarthritis. Reviewed by: Calixto Morejon MD on 01/29/2022 5:07 PM PDT Approved by: Calixto Morejon MD on 01/29/2022 5:07 PM PDT Station ID: [id number]
== END 2022-01-29 13:35 | disposition home or self-care (01) ==
LOC: DI 13:34
PROVIDERS: ATTEND Podiatrist
DX: S93.124A Dislocation of metatarsophalangeal joint of right lesser toe(s), initial encounter (principal); M20.11 Hallux valgus (acquired), right foot; M19.071 Primary osteoarthritis, right ankle and foot

== ENCOUNTER 2023-06-21 14:12 | Outpatient (CLI) | payer MEDICARE, OTHER ==
--- NOTE | 2023-06-21 18:33 | XRAY Report ---
PROCEDURE: Hip w/Pelvis 2-3V RT INDICATIONS: RIGHT HIP PAIN TECHNIQUE: AP pelvis with lateral view(s) of the right hip(s). COMPARISON: None. FINDINGS: Bones: No fractures or dislocations. No suspicious bony lesions. There is moderate to severe superior joint space narrowing seen involving the right hip. There is ass ociated remodeling change, with subchondral sclerosis and osteophyte formation. Moderate degenerati ve change can be seen in the contralateral left hip. Degenerative changes are seen elsewhere, including involving the visualized lower lumbar spine and th e pubic symphysis. Soft tissues: No suspicious soft tissue calcifications or masses. IMPRESSION: Moderate to severe right hip degenerative change. If it would be helpful for clinical management decision making, please consider a dedicated hip MRI f or further evaluation (assuming that there is no contraindication). This should be performed accordi ng to the arthrogram protocol, if there is strong clinical concern for a labral abnormality. Reviewed by: Adan Pozo MD on 06/21/2023 5:32 PM [place] Approved by: Adan Pozo MD on 06/21/2023 5:32 PM [facility] Station ID: [id number]
== END 2023-06-21 14:13 | disposition home or self-care (01) ==
LOC: DI 14:12
PROVIDERS: ATTEND Physician Assistant
DX: M16.11 Unilateral primary osteoarthritis, right hip (principal)

== ENCOUNTER 2024-02-02 12:09 | Outpatient (CLI) | payer MEDICARE, OTHER | END 2024-02-02 12:10 | disposition EMS.NT | LOC: EMS 12:09 | DX: Z03.89 Encounter for observation for other suspected diseases and conditions ruled out (principal); W01.0XXA Fall on same level from slipping, tripping and stumbling without subsequent striking against object, initial encounter; Y93.01 Activity, walking, marching and hiking; Y92.009 Unspecified place in unspecified non-institutional (private) residence as the place of occurrence of the external cause ==